=== PATIENT | female | born 1950 | race Caucasian/White ===

== ENCOUNTER → 2020-01-02 10:46 | Outpatient (BNVA) | payer MEDICARE, SELFPAY | PROVIDERS: PCP Internal Medicine; Visit Provider Orthopaedic Surgery | DX: Z76.89 Persons encountering health services in other specified circumstances (principal) ==

== ENCOUNTER → 2020-01-29 09:32 | Outpatient (REF) | payer MEDICARE, OTHER, SELFPAY ==
--- NOTE | 2020-01-29 09:30 | CA_ITS ---
Transthoracic Echocardiogram Patient (Last, First, Middle): Yvonne Bledsoe, Gender: Female Date of : 1950 Age: 69 Procedure Date: 01/29/2020 Procedure Type: Transthoracic Echocardiogram Location: OP Height: 157.48 cm Weight: 97.07 kg BSA: 1.97 m2 Heart Rate: bpm BP: 122 / 80 mmHg Senior Pastor: Referring MD: Zhanna Solomon MD Training And Development Director: Ryan Garnett MD Symptoms: ABNORMAL EKG , PRE OP Study Quality: Fair ECG Rhythm: Sinus Conclusions: - 1. Normal LV systolic function with mild LVH with grade 1 diastolic dysfunction 2. Normal cardiac valvular Doppler 3. Normal RV systolic pressure 4. No pericardial effusion Findings Left Ventricle Normal left ventricular size and systolic function. There is mildly increased left ventricular wall thickness. The visually estimated ejection fraction is between 60-65%. Regional wall motion abnormalities can not be excluded due to suboptimal endocardial definition. Spectral Doppler is indicative of an impaired relaxation filling pattern. E/E prime ratio is <8, consistent with normal filling pressures. Evidence suggests grade I (mild) diastolic dysfunction. Right Ventricle Normal right ventricular cavity size and systolic function. Atria The left atrium is normal in size. Interatrial shunt cannot be excluded. The right atrium was not well visualized. Aortic Valve The aortic valve was not well visualized. There is no aortic valve stenosis. There is no aortic valve regurgitation. Mitral Valve Likely normal mitral valve structure and function. There is trace mitral valve regurgitation. There is no mitral valve stenosis. Pulmonic Valve The pulmonic valve was not well visualized. Tricuspid Valve Likely normal tricuspid valve structure and function. There is trace tricuspid valve regurgitation. The right ventricular systolic pressure is normal. The right ventricular systolic pressure is 23 mmHg. Normal right atrial pressure. There is no evidence of pulmonary hypertension. Great Vessels All visible segments of the aorta are normal in size. The pulmonary artery was not well visualized. Venous The inferior vena cava is normal in size and collapses greater than 50% with inspiration. Pericardium/Pleural There is no evidence of pericardial effusion. Prior Study Comparison No significant change compared to prior study dated: 07/12/2016. Measurements 2D Linear Measurements IVSd: 1.26 0.6-0.9/0.6-1.0 cm LVIDd: 3.74 3.9-5.3/4.2-5.9 cm LVIDd Index: 1.90 2.4-3.2/2.2-3.1 cm/m2 LVIDs: 2.42 2.0-3.6 cm LVPWd: 1.22 0.7-1.1 cm Ao Root: 3.10 2.1-3.5 cm LA Diam: 3.60 2.7-3.8/3.0-4.0 cm LAIDs Index: 1.83 1.5-2.3 cm/m2 LV Mass: 195.86 67-162/88-224 g LV Mass Index: 99.42 43-95/49-115 g/m2 LVOT Diam: 2.00 3.0+(-)1.3 cm Mitral Valve MV Pk E: 0.91 MV PK A: 1.06 MV Decel Time: 162.00 E/A: 0.90 E'Lateral: 8.32 E'Medial: 6.38 E/E' Med: 14.30 E/E' Lat: 11.00 PHT: 47.00 MVA PHT: 4.68 Decel [place]: 5.63 Aortic Valve AoV Pk Matteo: 1.58 AoV Mn Matteo: 1.04 AoV VTI: 0.37 AoV Pk Grad: 10.00 Aov Mn Grad: 5.00 MORAIMA Cont.VTI: 2.22 LVOT LVOT Pk Matteo: 0.96 LVOT Mn Matteo: 0.64 LVOT VTI: 0.27 LVOT Pk Grad: 4.00 LVOT Mn Grad: 2.00 LVOT Diam: 2.00 LVOT Area: 3.14 Diastolic Function MV Pk E: 0.91 MV Pk A: 1.06 E/A: 0.90 E'Medial: 6.38 E/E' Med: 14.30 E' Laterial: 8.32 E/E' Lat: 11.00 Tricuspid Valve TR Pk Matteo: 2.23 TR Pk Grad: 20.00 RA Press: 3.00 RVSP: 23.00 Great Vessels Aorta Ao Root-2D: 3.10 2.0-3.7 cm Ao Asc: 2.90 2.1-3.4 cm Pulmonary Valve PV Pk Matteo: 1.34 Peak PV Grad: 7.00 Updated in Other Vendor System with Status of Final Ryan Garnett MD electronically signed on 01/29/2020 1:17:43 PM with status of Final
== END ==
LOC: HO.CARD 09:32
PROVIDERS: PCP Internal Medicine; Visit Provider Internal Medicine
DX: Z01.810 Encounter for preprocedural cardiovascular examination (principal); Z01.812 Encounter for preprocedural laboratory examination; R94.31 Abnormal electrocardiogram [ECG] [EKG]; M17.31 Unilateral post-traumatic osteoarthritis, right knee
CPT/HCPCS: 93306; 99212

== ENCOUNTER 2020-02-04 06:23 | Inpatient (IN) | payer MEDICARE, OTHER, SELFPAY ==
--- NOTE | 2020-01-21 | ECG_ITS ---
Test Reason : PREOP Blood Pressure : / mmHG Vent. Rate : 084 BPM Atrial Rate : 084 BPM P-R Int : 144 ms QRS Dur : 084 ms QT Int : 388 ms P-R-T Axes : 074 070 037 degrees QTc Int : 458 ms Normal sinus rhythm Nonspecific ST abnormality Abnormal ECG When compared with ECG of 23-JUN-2016 09:34, Heart rate has decreased ST more depressed Inferior leads Lateral leads Referred By: Ino Lozoya Electronically Signed By:EDNA MOHAMUD MD
[2020-01-21 08:55] VITALS: BP 119/70; PULSE 94; RESP 20; BMI 36.7
[2020-01-21 10:36] LABS: MANUAL DIFF FLAG NO
[2020-01-21 10:48] LABS: Basophils Percent Auto 0.5 % (0-2); Eosinophils Absolute Auto 0.1 X10*3/uL (0.0-0.4); Eosinophils Percent Auto 1.8 % (0-4); Hematocrit 37.4 % (37-47); Hemoglobin 11.5 g/dl (12.0-16.0); Imm Gran Abs Auto 0.01 X10*3/uL (0.00-0.03); Imm Gran Pct Auto 0.2 % (0.0-0.4); Lymphocytes Absolute Auto 1.8 X10*3/uL (1.2-4.9); Lymphocytes Percent Auto 29.3 % (20-40); Mean Corpuscular HGB Conc 30.7 g/dl (31.0-35.0); Mean Corpuscular Hemoglobin 28.4 pg (27.0-33.0); Mean Corpuscular Volume 92.3 fL (80-98); Mean Platelet Volume 11.4 fL (9.4-12.3); Monocytes Absolute Auto 0.5 X10*3/uL (0.1-1.2); Monocytes Percent Auto 7.7 % (2-11); Neutrophils Absolute Auto 3.8 X10*3/uL (2.0-8.3); Neutrophils Percent Auto 60.5 % (45-73); Platelet Count 131 X10*3/uL (160-400); Red Blood Count 4.05 X10*6/uL (4.20-5.50); Red Cell Distribution Width 16.3 % (11.0-16.0); White Blood Count 6.2 X10*3/uL (4.8-10.8)
[2020-01-21 11:03] LABS: Estimated Average Glucose 157 mg/dL; Hemoglobin A1c % 7.1 %
[2020-01-21 11:11] LABS: Anion Gap 12 (12-20); Blood Urea Nitrogen 23 mg/dL (9-16); Calcium 9.5 mg/dL (8.4-10.2); Carbon Dioxide 29 mmol/L (22-29); Chloride 105 mmol/L (96-108); Creatinine Clr Calc Pharmacy 57.2; Estimated Glomerular Filt Rate 53; Glucose Random 151 mg/dL (60-115); Potassium 4.4 mmol/l (3.3-5.1); Sodium 142 mmol/L (135-145)
[2020-01-21 12:43] LABS: MRSA Nasal PCR NEGATIVE (Negative); SA Nasal PCR POSITIVE (Negative)
--- NOTE | 2020-02-03 10:58 | P.CONAN_ITS ---
Documented by User: Vikyher Haqney 02/03/20 11:01 HPI - Anesthesia Eval Consult details Narrative: 69yo F for Right TKA PCP cleared [facility] Past Medical History Medical History Anxiety Arrhythmia Arthritis COPD (chronic obstructive pulmonary disease) Depression Diabetes insipidus, neurohypophyseal History of diverticulosis History of renal stone Hypertension IBS (irritable bowel syndrome) CHASE on CPAP PONV (postoperative nausea and vomiting) Surgical History Surgical History History of cystoscopy History of removal of retained hardware Hx of colonoscopy Hx of right knee surgery Status post laser lithotripsy of ureteral calculus Social History Social History Are you a primary day care attendant to a significant other at home: No Do you presently have visiting nurse or other home services: No Alcohol intake: never Smoking Status: Former smoker Smoking Quit Date: 2016 Use of substances other than those prescribed or required for medical reasons: No Have you been hit, kicked, punched, or otherwise hurt by someone within the past year? If so, by whom?: No Protestant Healthcare Practices: amish Advance Directives: No Advance Directives Information Provided: No Advance Directives on File: No Recently lost weight without trying: No Current occupational status: retired [employer] Allergies Allergy/AdvReac Type Severity Reaction Status Date / Time hydrocodone [From VICODIN] AdvReac Severe NAUSEA AND Verified 02/04/20 06:32 VOMIITING Home Medications Medication Instructions Recorded Confirmed Type acetaminophen 500 mg tablet 500 mg PO Q6H 01/02/20 01/20/20 History alprazolam 0.25 mg tablet 0.25 mg PO DAILY PRN 01/02/20 01/02/20 History brimonidine 0.1 % eye drops 1 drp OPHTHALMIC (EYE) BID ml 01/02/20 02/04/20 History citalopram 40 mg tablet 40 mg PO DAILY 01/02/20 01/20/20 History cyclobenzaprine 5 mg tablet 5 mg PO BID 01/02/20 01/20/20 History fluticasone 250 mcg-salmeterol 50 2 inh INHALATION DAILY 01/02/20 01/20/20 History mcg/dose blistr powdr for inhalation glipizide 10 mg tablet 10 mg PO BID 01/02/20 01/20/20 History latanoprost 0.005 % eye drops 1 drp OPHTHALMIC (EYE) DAILY ml 01/02/20 01/20/20 History lisinopril 20 mg tablet 20 mg PO DAILY 01/02/20 01/21/20 History meloxicam 15 mg tablet 15 mg PO DAILY 01/02/20 01/20/20 History mirtazapine 30 mg tablet 30 mg PO BEDTIME 01/02/20 01/20/20 History oxygen-air delivery systems #1 01/02/20 01/02/20 History pioglitazone 30 mg tablet 30 mg PO DAILY 01/02/20 01/20/20 History rosuvastatin 5 mg tablet 5 mg PO DAILY 01/02/20 01/20/20 History albuterol sulfate [ProAir HFA] 2 puff INHALATION 6XD PRN 01/21/20 01/21/20 History alendronate 1 tab PO QWEEK 01/21/20 01/21/20 History aspirin 81 mg PO DAILY 01/21/20 01/21/20 History multivitamin [One A Day] 1 tab PO DAILY 01/21/20 01/21/20 History umeclidinium [Incruse Ellipta] 1 inh INHALATION DAILY 01/21/20 01/21/20 History Exam Exam Date and Time: February 03, 2020 1058 Height,Weight and Vital Signs: Height 5 ft 4 in Weight 97.069 kg Last Vital Signs Pulse 94 01/21/20 08:55 Resp 20 01/21/20 08:55 BP 119/70 01/21/20 08:55 Pertinent Lab Results Pertinent Lab Results: Laboratory Tests 01/21/20 01/21/20 01/21/20 00:00 10:25 10:25 WBC 6.2 RBC 4.05 L Hgb 11.5 L Hct 37.4 MCV 92.3 MCH 28.4 MCHC 30.7 L RDW 16.3 H Plt Count 131 L MPV 11.4 Immature Gran % (Auto) 0.2 Neut % (Auto) 60.5 Lymph % (Auto) 29.3 [place] % (Auto) 7.7 Eos % (Auto) 1.8 Baso % (Auto) 0.5 Lymph # (Auto) 1.8 [place] # (Auto) 0.5 Eos # (Auto) 0.1 Baso # (Auto) 0.0 Abs Immat Gran (auto) 0.01 Absolute Neuts (auto) 3.8 Absolute Nucleated RBC 0.000 Nucleated RBC % (auto) 0.0 Sodium 142 Potassium 4.4 Chloride 105 Carbon Dioxide 29 Anion Gap 12 BUN 23 H Creatinine 1.02 Estim Creat Clear Calc 57.2 Estimated GFR 53 Random Glucose 151 H Estimat Average Glucose Hemoglobin A1c % Calcium 9.5 Nasal Screen MRSA (PCR) NEGATIVE Nasal S. aureus Screen POSITIVE A Nasal MRSA/S.aureus Interp SEE NOTE Blood Type Antibody Screen 01/21/20 01/29/20 10:25 13:50 WBC RBC Hgb Hct MCV MCH MCHC RDW Plt Count MPV Immature Gran % (Auto) Neut % (Auto) Lymph % (Auto) [place] % (Auto) Eos % (Auto) Baso % (Auto) Lymph # (Auto) [place] # (Auto) Eos # (Auto) Baso # (Auto) Abs Immat Gran (auto) Absolute Neuts (auto) Absolute Nucleated RBC Nucleated RBC % (auto) Sodium Potassium Chloride Carbon Dioxide Anion Gap BUN Creatinine Estim Creat Clear Calc Estimated GFR Random Glucose Estimat Average Glucose 157 Hemoglobin A1c % 7.1 Calcium Nasal Screen MRSA (PCR) Nasal S. aureus Screen Nasal MRSA/S.aureus Interp Blood Type A Positive Antibody Screen NEGATIVE Narrative Narrative: EKG Normal sinus rhythm, Nonspecific ST abnormality ECHO 01/29/20 1. Normal LV systolic function with mild LVH with grade 1 diastolic dysfunction 2. Normal cardiac valvular Doppler 3. Normal RV systolic pressure 4. No pericardial effusion Assessment and Plan Assessment Anesthesia Assessment: Chart Reviewed (Pt seen in PAT by Dr Chamberlain, ECHO requested. ) Documented by User: Juan Alberto Jorge MD 02/04/20 08:13 [facility] Past Medical History Medical History Anxiety Arrhythmia Arthritis COPD (chronic obstructive pulmonary disease) Depression Diabetes insipidus, neurohypophyseal History of diverticulosis History of renal stone Hypertension IBS (irritable bowel syndrome) CHASE on CPAP PONV (postoperative nausea and vomiting) Surgical History Surgical History History of cystoscopy History of removal of retained hardware Hx of colonoscopy Hx of right knee surgery Status post laser lithotripsy of ureteral calculus Social History Social History Are you a primary day care attendant to a significant other at home: No Do you presently have visiting nurse or other home services: No Alcohol intake: never Smoking Status: Former smoker Smoking Quit Date: 2016 Use of substances other than those prescribed or required for medical reasons: No Have you been hit, kicked, punched, or otherwise hurt by someone within the past year? If so, by whom?: No Protestant Healthcare Practices: amish Advance Directives: No Advance Directives Information Provided: No Advance Directives on File: No Recently lost weight without trying: No Current occupational status: retired [employer] Allergies Allergy/AdvReac Type Severity Reaction Status Date / Time hydrocodone [From VICODIN] AdvReac Severe NAUSEA AND Verified 02/04/20 06:32 VOMIITING Home Medications Medication Instructions Recorded Confirmed Type acetaminophen 500 mg tablet 500 mg PO Q6H 01/02/20 01/20/20 History alprazolam 0.25 mg tablet 0.25 mg PO DAILY PRN 01/02/20 01/02/20 History brimonidine 0.1 % eye drops 1 drp OPHTHALMIC (EYE) BID ml 01/02/20 02/04/20 History citalopram 40 mg tablet 40 mg PO DAILY 01/02/20 01/20/20 History cyclobenzaprine 5 mg tablet 5 mg PO BID 01/02/20 01/20/20 History fluticasone 250 mcg-salmeterol 50 2 inh INHALATION DAILY 01/02/20 01/20/20 History mcg/dose blistr powdr for inhalation glipizide 10 mg tablet 10 mg PO BID 01/02/20 01/20/20 History latanoprost 0.005 % eye drops 1 drp OPHTHALMIC (EYE) DAILY ml 01/02/20 01/20/20 History lisinopril 20 mg tablet 20 mg PO DAILY 01/02/20 01/21/20 History meloxicam 15 mg tablet 15 mg PO DAILY 01/02/20 01/20/20 History mirtazapine 30 mg tablet 30 mg PO BEDTIME 01/02/20 01/20/20 History oxygen-air delivery systems #1 01/02/20 01/02/20 History pioglitazone 30 mg tablet 30 mg PO DAILY 01/02/20 01/20/20 History rosuvastatin 5 mg tablet 5 mg PO DAILY 01/02/20 01/20/20 History albuterol sulfate [ProAir HFA] 2 puff INHALATION 6XD PRN 01/21/20 01/21/20 History alendronate 1 tab PO QWEEK 01/21/20 01/21/20 History aspirin 81 mg PO DAILY 01/21/20 01/21/20 History multivitamin [One A Day] 1 tab PO DAILY 01/21/20 01/21/20 History umeclidinium [Incruse Ellipta] 1 inh INHALATION DAILY 01/21/20 01/21/20 History Exam Airway Mallampati Class: III TM Dist: >3cm Neck ROM: Full Loose/Missing/Broken Teeth: No Heart: rrr Lungs: nl Other: ao Assessment and Plan Assessment Anesthesia Assessment: Anesthesia Plan Discussed, PAT Visit and Chart Reviewed Final Anesthetic Review NPO: Yes ASA Class: III Final Preanesthetic Review: No Changes in Pt Med Stat, Meds/Allgs Chart Reviewed, Consent Obtained/Reviewed and Anes Risks/Benef Reviewed Patient Risk: Intermediate Procedure Risk: Intermediate Anesthetic Plan Anesthetic Plan: MAC:, Spinal and Regional Block Disposition: Standard PACU
[2020-02-04] VITALS (14 sets, daily range): BP systolic 106–167; BP diastolic 60–81; PULSE 77–97; RESP 14–20; TEMP 35.7–36.6; O2SAT 95–100
[2020-02-04 06:45] LABS: COVID-19 Test Negative (Negative)
[2020-02-04] MEDS: ceFAZolin Sodium/Dextrose,Iso 2 GM/50 ML PIGGYBACK IV ×2 (06:59→14:30)
[2020-02-04] MEDS: Gabapentin 600 MG TABLET PO (07:01)
--- NOTE | 2020-02-04 07:04 | PC.NURSE ---
patient has a small cut on her left knee. took a picture and sent to md adames. nonoperative side.
[2020-02-04] MEDS: Lactated Ringers 1,000 ML 100 ML IVCONT (07:15)
[2020-02-04 07:33] LABS: Glucose, Whole Blood 179 mg/dL (60-115)
[2020-02-04] MEDS: Scopolamine 1.5 MG PATCH.TD.3 TRANSDERMA (08:46)
--- NOTE | 2020-02-04 10:16 | PM.OP ---
Brief Operative Note Date of Service: 02/04/20 Pre-op diagnosis: post traumatic osteoarthritis right knee Post-op diagnosis: same Procedure: right TKA Implants: tatiana triathalon 05/06/TS/35a Surgeon: Guzman Melo MD Anesthesia: regional and spinal Historical Guide: Ino Lozoya Estimated blood loss (mL): 20 Tourniquet time (min): 99 IV fluids (mL): 1,200 Pathology: other (bone, right knee) Condition: stable Disposition: PACU
--- NOTE | 2020-02-04 10:50 | XR_ITS ---
EXAMINATION: XR KNEE, RIGHT CLINICAL INFORMATION: Status post total knee arthroplasty, right COMPARISON: Standing AP knees 05/01/2019, right knee 05/03/2019, right knee 08/13/2019. TECHNIQUE: AP and crosstable lateral views of the right knee are obtained. FINDINGS: Patient is status post right total knee arthroplasty with hinged prosthesis. Old hardware right femur noted on prior imaging has been removed. There is short compression plate and screws proximal medial tibia again noted. There is no acute fracture or destructive process. Subcutaneous emphysema and overlying skin candace seen as expected. XR/XR knee RT 2V IMPRESSION: Status post right knee arthroplasty. Hardware intact. No acute fracture or destructive process.
[2020-02-04] MEDS: Acetaminophen 325 MG TABLET 650 MG PO (11:03)
[2020-02-04] MEDS: oxyCODONE HCl Immed Release 5 MG TABLET PO (11:04)
[2020-02-04] MEDS: Ketorolac Tromethamine 15 MG/ML VIAL IVPUSH (11:04)
--- NOTE | 2020-02-04 12:29 | OP_ITS ---
SURGEON: Guzman Melo MD INDICATIONS: This is a 69-year-old woman who sustained both the tibial plateau and a distal femur fracture over the past several years. She underwent hardware removal and was scheduled for knee replacement. PREOPERATIVE DIAGNOSIS: Right knee posttraumatic osteoarthritis. POSTOPERATIVE DIAGNOSIS: Right knee posttraumatic osteoarthritis. PROCEDURE PERFORMED: Right total knee arthroplasty. ESTIMATED BLOOD LOSS: 20 mL. COMPLICATIONS: None. ANESTHESIA: Spinal and regional. ASSISTANTS: SPECIMENS: FLUIDS: 1200. HOTHOUSE WORKER: NADIYA Mack. GRAFT OR IMPLANTS: Hillary Triathlon, 3 femur with universal 3 base plate and a 50 mm stem extension with 19 PS insert and 35A patella. PROCEDURE IN DETAIL: The patient was brought to the operating room, placed supine on the operative table and prepped and draped in standard sterile fashion. Time-out was called to identify proper site, proper procedure, proper surgeon. IV antibiotics per weight were administered. I began by exsanguinating the limb and insufflating tourniquet to 300 mmHg. I then made a midline incision more medial than typical over her previous incision. Dissection was taken through scar tissue to the retinaculum and a medial parapatellar arthrotomy was performed. She had a posttraumatic deformity of the tibia with a very prominent tibial tubercle and the medial anterior tibial plateau was diminutive. I dissected to the level of the tubercle and was able to translate the patella laterally, flexed up the knee about 50 degrees. Of note, she had a range of motion was not greater than 90 degrees of flexion. She had a hyperextension of -5 degrees. I was able to identify [place]'s line as my guide for intramedullary femoral guide, and I made my distal femur cut in 5 degrees of valgus. I then sized a size 3 femur, made my anterior posterior and chamfer cuts, making sure not to notch and protecting the soft tissues at all times. I made a box cut removing the PCL. At this time, I turned to the tibia, where I made my tibial cut in line with the tibial crest, taking 2 mm off the low side medially. This resulted in a sizable lateral cut. I used an extension block to confirm the extent of resection and was happy with the extension. There was approximately 19 mm insert at this point. I sized a size 3 tibia, aligning it slightly posterior, given the asymmetry of the posttraumatic deformity of the tibia. This was provisionally placed with a femur after removing all the loose tissue and Hydrocet from the tibial plateau ORIF. I took the knee through range of motion with provisional implants and I was happy with the range. I flexed her to approximately to 120 degrees and I had full extension. There was some minimal laxity in valgus stress that could not be compensated for with a medial release. I selected a TS insert counteract this. Once I was happy with the trial, I resurfaced the undersurface of the patella and again took the knee through range of motion. I was happy with the tracking. Tthe tibial canal was prepared. I was able to sink the reamer without encountering the screws. I irrigated copiously and then using standard fashion cement standard technique, cemented in the tibia and femur while applying axial compression. I placed a 50 mm tibial stem. The patella was cemented in. Once the cement was dry, all excess cement was removed and I trialed a 16 and 19 and I was happiest with the 19. A 19 TS insert was placed and a 3-minute iodine soak was performed with local TXA. I was happy with the range tracking and stability. Therefore, the retinaculum was closed with Monocryl and the subcuticular sutue with candace on the skin. The patient was placed in sterile dressing, brought to recovery room in stable condition. There were no known complications. MD KIMBERLY Sanchez/MANDY / [id number] TARAS
[2020-02-04] MEDS: ondansetron HCL 4 MG/2 ML VIAL IVPUSH (13:49)
[2020-02-04] MEDS: HYDROmorphone HCl 0.5 MG/0.5 ML SYRINGE 0.25 MG IVPUSH ×2 (14:29→19:14)
[2020-02-04] MEDS: Sodium Chloride 0.45 % 1,000 ML 80 ML IVCONT (14:34)
--- NOTE | 2020-02-04 14:50 | PM.IMCN ---
History of Present Illness Data of Consult Service Date: 02/04/20 Requesting physician: Guzman Melo Primary Care Provider: Zhanna Solomon MD HPI Reason for consult: Medical Consult 69/ with diabetes, HTN, CHASE on CPAP, anxiety, depression, neuropathy here with elective Right TKR due to post traumatic OA. Surgery done earlier today, no issue at moment. Review of Systems Review of Systems: Gen: no fever Resp: no sob, no cough CV: no chest, no CATES, no leg edema GI: No n/v, no abd pain Neuro: No confusion Musk/skl: pain in the right PMFSH Medical History (Updated 02/04/20 @ 15:07 by Joaquín Gonzalez MD) Anxiety Arrhythmia Arthritis COPD (chronic obstructive pulmonary disease) Depression Diabetes insipidus, neurohypophyseal History of diverticulosis History of renal stone Hypertension IBS (irritable bowel syndrome) CHASE on CPAP PONV (postoperative nausea and vomiting) Functional capacity: independent ambulation Surgical History History of cystoscopy History of removal of retained hardware Hx of colonoscopy Hx of right knee surgery Status post laser lithotripsy of ureteral calculus Social History Are you a primary healthcare interpreter to a significant other at home: No Do you presently have visiting nurse or other home services: No Alcohol intake: never Smoking Status: Former smoker Smoking Quit Date: 2016 Use of substances other than those prescribed or required for medical reasons: No Have you been hit, kicked, punched, or otherwise hurt by someone within the past year? If so, by whom?: No Gnosticism Healthcare Practices: mormon Advance Directives: No Advance Directives Information Provided: No Advance Directives on File: No Do you have thoughts of harming others: None Do you have a plan to hurt others: No Plan Recently lost weight without trying: No Current occupational status: retired Meds Allergies Allergy/AdvReac Type Severity Reaction Status Date / Time hydrocodone [From VICODIN] AdvReac Severe NAUSEA AND Verified 02/04/20 06:32 VOMIITING Home Medications Medication Instructions Recorded Confirmed Type acetaminophen 500 mg tablet 500 mg PO Q6H 01/02/20 01/20/20 History alprazolam 0.25 mg tablet 0.25 mg PO DAILY PRN 01/02/20 01/02/20 History brimonidine 0.1 % eye drops 1 drp OPHTHALMIC (EYE) BID ml 01/02/20 02/04/20 History citalopram 40 mg tablet 40 mg PO DAILY 01/02/20 01/20/20 History cyclobenzaprine 5 mg tablet 5 mg PO BID 01/02/20 01/20/20 History fluticasone 250 mcg-salmeterol 50 2 inh INHALATION DAILY 01/02/20 01/20/20 History mcg/dose blistr powdr for inhalation glipizide 10 mg tablet 10 mg PO BID 01/02/20 01/20/20 History latanoprost 0.005 % eye drops 1 drp OPHTHALMIC (EYE) DAILY ml 01/02/20 01/20/20 History lisinopril 20 mg tablet 20 mg PO DAILY 01/02/20 01/21/20 History meloxicam 15 mg tablet 15 mg PO DAILY 01/02/20 01/20/20 History mirtazapine 30 mg tablet 30 mg PO BEDTIME 01/02/20 01/20/20 History oxygen-air delivery systems #1 01/02/20 01/02/20 History pioglitazone 30 mg tablet 30 mg PO DAILY 01/02/20 01/20/20 History rosuvastatin 5 mg tablet 5 mg PO DAILY 01/02/20 01/20/20 History albuterol sulfate [ProAir HFA] 2 puff INHALATION 6XD PRN 01/21/20 01/21/20 History alendronate 1 tab PO QWEEK 01/21/20 01/21/20 History aspirin 81 mg PO DAILY 01/21/20 01/21/20 History multivitamin [One A Day] 1 tab PO DAILY 01/21/20 01/21/20 History umeclidinium [Incruse Ellipta] 1 inh INHALATION DAILY 01/21/20 01/21/20 History Physical Exam Vital Signs and Narrative: Vital Signs: Last Vital Signs Temp 96.8 F 02/04/20 12:48 Pulse 80 02/04/20 12:48 Resp 18 02/04/20 14:29 BP 165/76 H 02/04/20 12:48 Pulse Ox 97 02/04/20 12:48 Body Mass Index 36.7 General: AO X 3, no acute distress Resp: CTA bilateral CVS: S1,S2,RRR GI: +BS, NT, no distention Skin: No rash, wound d/c/i Neuro: motor grossly intact Psych: appropriate affect Results Labs CBC and Chem 7: 02/05/20 06:09 02/05/20 06:09 Labs: Laboratory Results - last 24 hr 02/04/20 02/04/20 06:17 06:25 POC Glucose 179 H COVID-19 (JARED) Negative COVID-19 Clin Com See Note Imaging Radiologist's Impressions: Impressions Knee X-Ray 02/04/20 10:50 IMPRESSION: Status post right knee arthroplasty. Hardware intact. No acute fracture or destructive process. Assessment and Plan (1) Diabetes insipidus, neurohypophyseal: Status: Acute (2) Post-traumatic osteoarthritis of right knee: Status: Acute (3) Depression: Status: Acute (4) Hypertension: Status: Acute (5) CHASE on CPAP: Status: Acute (6) Anxiety: Status: Acute 69/F with DM, HTN, Depression, CHASE here with right knee OA s/p Right TKR 1. Dabetes--Hold oral agents (Acotos and Glipzide) until tomorrrow. Add SSI, and check sugars 2. HTN --continue Lisinopril 3. Depression--Remron, Celex 4. Anxiety--Xanax PRN 5. COPD, stable no exacerbtion--Albuterol PRN 6.
[2020-02-04 16:33] LABS: Glucose, Whole Blood 158 mg/dL (60-115)
[2020-02-04] MEDS: Insulin Lispro 100 UNIT/ML 3 ML VIAL SUBCUT ×2 (16:44→20:36)
[2020-02-04] MEDS: 0.9 % Sodium Chloride Flush 3 ML SYRINGE IVFLUSH (16:46)
--- NOTE | 2020-02-04 18:45 | P.EN_ITS ---
Event Note Date of Service: 02/04/20 Event Note: Ms Bledsoe underwent right TKA today. Post operative radiographs re vealed a periprosthetic fracture of the tibia. Intra-operatively she had excellent ROM and stability but for the longevity of the knee prosthesis I recommend revision. I discussed this finding with her and her daughter and recommend a return to the OR for replacement of the tibial component with a long tibial stemmed componenet that spans the cortical defect. I explained this to the patient and her daughter. I also described the risks, benefits and alternatives. Her questions were answered. She will be NPO after midnight.
[2020-02-04 20:14] LABS: Glucose, Whole Blood 262 mg/dL (60-115)
[2020-02-04] MEDS: Brimonidine Tartrate 0.2% Oph 5 ML BOTTLE 1 DROP EYE-BOTH (20:20)
[2020-02-04] MEDS: Latanoprost 0.005 % Ophth Sol 2.5 ML DROPS 1 DROP EYE-BOTH (20:20)
[2020-02-04] MEDS: Mirtazapine 30 MG TABLET PO (20:22)
[2020-02-04] MEDS: Cyclobenzaprine HCl 5 MG TABLET PO (20:22)
[2020-02-04] MEDS: Celecoxib 200 MG CAPSULE PO (20:22)
[2020-02-04] MEDS: oxyCODONE HCl Immed Release 5 MG TABLET 10 MG PO (20:27)
[2020-02-05] VITALS (31 sets, daily range): BP systolic 80–147; BP diastolic 48–77; PULSE 79–120; RESP 13–20; TEMP 36.1–37.3; O2SAT 90–98; BMI 36.7
--- NOTE | 2020-02-05 | XR_ITS ---
EXAMINATION: XR KNEE, RIGHT CLINICAL INFORMATION: Right knee TKA COMPARISON: None TECHNIQUE: Crosstable lateral view of the right knee. FINDINGS: Frontal and oblique view of the knee was performed earlier today. See separate report. Crosstable lateral view of right knee shows status post right knee arthroplasty. Prosthetic components in position. No fracture. Surgical clips at the anterior knee. There is air in the soft tissue from the surgery. XR/XR knee RT 2V IMPRESSION: Status post right knee arthroplasty.
[2020-02-05] MEDS: HYDROmorphone HCl 0.5 MG/0.5 ML SYRINGE 0.25 MG IVPUSH ×3 (00:27→23:56)
[2020-02-05] MEDS: oxyCODONE HCl Immed Release 5 MG TABLET 10 MG PO ×3 (02:44→22:22)
[2020-02-05] MEDS: Sodium Chloride 0.45 % 1,000 ML 80 ML IVCONT ×2 (02:48→16:17)
[2020-02-05] MEDS: ceFAZolin Sodium/Dextrose,Iso 2 GM/50 ML PIGGYBACK IV ×2 (05:44→15:50)
[2020-02-05 06:54] LABS: MANUAL DIFF FLAG NO
[2020-02-05 07:02] LABS: Basophils Percent Auto 0.1 % (0-2); Eosinophils Percent Auto 0.5 % (0-4); Hematocrit 33.4 % (37-47); Hemoglobin 10.2 g/dl (12.0-16.0); Imm Gran Abs Auto 0.02 X10*3/uL (0.00-0.03); Imm Gran Pct Auto 0.2 % (0.0-0.4); Lymphocytes Absolute Auto 1.2 X10*3/uL (1.2-4.9); Lymphocytes Percent Auto 13.8 % (20-40); Mean Corpuscular HGB Conc 30.5 g/dl (31.0-35.0); Mean Corpuscular Hemoglobin 29.1 pg (27.0-33.0); Mean Corpuscular Volume 95.2 fL (80-98); Mean Platelet Volume 12.2 fL (9.4-12.3); Monocytes Percent Auto 11.2 % (2-11); Neutrophils Absolute Auto 6.3 X10*3/uL (2.0-8.3); Neutrophils Percent Auto 74.2 % (45-73); Platelet Count 135 X10*3/uL (160-400); Red Blood Count 3.51 X10*6/uL (4.20-5.50); Red Cell Distribution Width 15.6 % (11.0-16.0); White Blood Count 8.5 X10*3/uL (4.8-10.8)
[2020-02-05 07:13] LABS: Glucose, Whole Blood 196 mg/dL (60-115)
[2020-02-05 07:23] LABS: Anion Gap 15 (12-20); Blood Urea Nitrogen 20 mg/dL (9-16); Calcium 8.9 mg/dL (8.4-10.2); Carbon Dioxide 27 mmol/L (22-29); Chloride 102 mmol/L (96-108); Creatinine Clr Calc Pharmacy 61.4; Estimated Glomerular Filt Rate 58; Glucose Fasting 203 mg/dL (60-99); Potassium 4.7 mmol/l (3.3-5.1); Sodium 139 mmol/L (135-145)
--- NOTE | 2020-02-05 07:40 | MHC.SHP ---
Pre-Procedural Eval Section A The patient is an INPATIENT: Yes Changes since office visit: Yes Patient answered all questions; No Cold of Flu in the past 2 weeks, No New Medical Problems and No Changes in Medication The History & Physical has been completed within 30 days and I have reviewed it.: Yes Section B Chief Complaint: RIGHT KNEE OSTEOARTHRITIS Allergies: Allergies Allergy/AdvReac Type Severity Reaction Status Date / Time hydrocodone [From VICODIN] AdvReac Severe NAUSEA AND Verified 02/04/20 06:32 VOMIITING Plan Patient has been examined and remains a candidate for the planned procedure
--- NOTE | 2020-02-05 09:17 | HO.POSTANES ---
Post Anesthesia Evaluation Post Anesthesia Evaluation Vital Signs: Vital Signs Temp Pulse Resp BP Pulse Ox 02/05/20 07:04 99.2 F 102 H 18 100/51 L 90 L 02/05/20 02:51 97.8 F 93 16 147/58 H 97 02/04/20 21:24 97.8 F 78 18 152/71 H 98 Anesthesia: Nerve Block and General Mental Status: Awake Pain Control: Satisfactory (patient had pain all night. most likely secondary to fracture that ocurred during the procedure) Nausea/Vomiting: Mild (has improved but vomited many times after surgery) Hydration: Adequate Anesthesia-Related Issues: No Anes. Related Issues (no anesthesia related complications but had surgical complication. To return to OR today 02/04 for revision)
--- NOTE | 2020-02-05 10:19 | XR_ITS ---
EXAMINATION: XR KNEE, RIGHT CLINICAL INFORMATION: Status post right knee arthroplasty. COMPARISON: Radiographs right knee 02/04/2020, 05/01/2019, 04/23/2019 TECHNIQUE: Portable AP and portable crosstable lateral views of the right knee are obtained at 1033/1036 hours. FINDINGS: There is now an unhinged knee arthroplasty with long stem tibial component traversing an oblique fracture of the proximal tibia. There is a clamp overlying the proximal tibia. The hardware appears intact. No dislocation. XR/XR knee RT 2V IMPRESSION: Status post unhinged knee arthroplasty with longstem tibial component traversing an oblique fracture proximal tibia.
--- NOTE | 2020-02-05 11:31 | XR_ITS ---
EXAMINATION: XR KNEE, RIGHT CLINICAL INFORMATION: Status post right total knee arthroplasty COMPARISON: Earlier on same day and February 04, 2020 TECHNIQUE: AP and lateral of the right knee. FINDINGS: Patient status post right total knee arthroplasty with prosthetic components in position. Since previous study a sideplate and screws within the proximal tibia have been removed. A new plate and side screws seen more proximally within the proximal tibia. Skin candace in place. Subcutaneous gas seen from recent surgery. XR/XR knee RT 2V IMPRESSION: Status post right total knee arthroplasty with revision. Prosthetic components appear in position.
--- NOTE | 2020-02-05 12:04 | MHC.CM.PN ---
NURSE FROZEN FOODS MANAGER NOTE ELECTRONIC MEDICAL RECORD REVIEWED ALONG WITH CASE DISCUSSED WITH STAFF NURSE MET WITH PATIENT AND EXPLAINED THE ROLE OF THE NURSE FROZEN FOODS MANAGER , PATIENT REPORTS THAT SHE LIVES ALONE IS INDEPENDENT IN HER ADLS AND MOBILITY AT HER OWN PACE AND THAT HER SISTER WILL COME AND STAY WITH HER WHEN SHE IS DISCHARGED HOME . SHE HAS A CPAP MACHINE FROM [employer] ,SHE IS FOLLOWED BY A PULMONARY AT [facility] FOR HER COPD , SHE HAS ANXIETY BUT SEES NO ONE , REPORTS THAT SHE CURRENTLY DOES NOT HAVE ANY VNA SERVCIES .PRIMARY Care doctor prescribes any medications that she might need. REVIEWED WITH PATIENT THE VNA AGENCIES AND SHE REQUESTED TO HAVE BACK AGAIN THE [facility] FOR HOME PHYSICAL THERAPY DISCHARGE PLAN HOME- WITH THE [facility] FOR HOME PHYSICAL THERAPY TRANSPORTATION FAMILY PCP PATIENT TO CALL FOR FOLLOW UP POST HOSPITAL DISCHARGE, ORTHOPEDIC SURGICAL FOLLOW UP-PER DISCHARGE [employer] medicare imm Initialized on 02/04/20 16:00 - END OF NOTE
[2020-02-05 12:24] LABS: Glucose, Whole Blood 209 mg/dL (60-115)
--- NOTE | 2020-02-05 12:36 | P.PNIM_ITS ---
Subjective Subjective Date of Service: 02/05/20 Interval History: seen in f/u for consult s/p TKR, gone back to surgery Physical Exam Vital Signs: Vital Signs: Last Vital Signs Temp 98.6 F 02/05/20 12:15 Pulse 111 H 02/05/20 12:20 Resp 18 02/05/20 12:20 BP 111/71 02/05/20 12:20 Pulse Ox 93 02/05/20 12:20 Body Mass Index 36.7 General: AO X 3, no acute distress Resp: normal resp effort CVS: S1,S2,RRR GI: +BS, NT, no distention Skin: No rash, wound d/c/i Neuro: motor grossly intact Psych: appropriate affect Objective Data Current Medications Generic Name Dose Route Start Last Admin Trade Name Freq PRN Reason Stop Dose Admin Acetaminophen 650 mg 02/04/20 12:43 Acetaminophen 325 Mg Tablet PO Q6H PRN Pain, Mild (Pain Scale 1-3) Albuterol Sulfate 2 puff 02/04/20 12:43 Albuterol Sulfate 90 Mcg 8 Gm Inhaler INHALE 6XD PRN Wheezing Brimonidine Tartrate 1 drop 02/04/20 21:00 02/04/20 20:20 Brimonidine Tartrate 0.2% Oph 5 Ml Bottle EYE-BOTH 1 drop BID PERRY Administration Celecoxib 200 mg 02/04/20 21:00 02/04/20 20:22 Celecoxib 200 Mg Capsule PO 200 mg BID PERRY Administration Cyclobenzaprine HCl 5 mg 02/04/20 21:00 02/04/20 20:22 Cyclobenzaprine Hcl 5 Mg Tablet PO 5 mg BID PERRY Administration Escitalopram Oxalate 20 mg 02/05/20 09:00 Escitalopram Oxalate 20 Mg Tablet PO DAILY PERRY Fluticasone/Vilanterol 1 puff 02/05/20 08:00 02/05/20 08:43 Fluticasone/Vilanterol 100/25 Blst.W.Dev INHALE Not Given RDAILY PERRY Hydromorphone HCl 0.25 mg 02/04/20 12:43 02/05/20 05:52 Hydromorphone Hcl 0.5 Mg/0.5 Ml Syringe IVPUSH 0.25 mg Q4H PRN Administration Pain, Severe (Pain Scale 7-10) Hydromorphone HCl 0.5 mg 02/05/20 09:54 Hydromorphone Hcl 0.5 Mg/0.5 Ml Syringe IVPUSH Q5M PRN Pain, Severe (Pain Scale 7-10) Sodium Chloride 1,000 mls @ 80 mls/hr 02/04/20 12:43 02/05/20 02:48 IVCONT 80 mls/hr .[id number] PERRY Administration Promethazine HCl 12.5 mg/ 50.5 mls @ 202 mls/hr 02/05/20 09:54 Sodium Chloride IV ONCE PRN Nausea and Vomiting Insulin Human Lispro 0 unit 02/04/20 16:30 02/05/20 08:38 Insulin Lispro 100 Unit/Ml 3 Ml Vial SUBCUT Not Given QIDACHS [facility] Protocol Latanoprost 1 drop 02/04/20 21:00 02/04/20 20:20 Latanoprost 0.005 % Ophth Hali 2.5 Ml Drops EYE-BOTH 1 drop BEDTIME [facility] Administration Lisinopril 20 mg 02/05/20 09:00 Lisinopril 20 Mg Tablet PO DAILY [facility] Protocol Mirtazapine 30 mg 02/04/20 21:00 02/04/20 20:22 Mirtazapine 30 Mg Tablet PO 30 mg BEDTIME [facility] Administration Multivitamins/Vitamin C 1 tab 02/05/20 09:00 Multivitamin Tablet PO DAILY [facility] Naloxone HCl 0.2 mg 02/04/20 12:43 Naloxone Hcl 0.4 Mg/Ml Vial IVPUSH Q2M PRN Excessive sedation or RR < 8 Ondansetron HCl 4 mg 02/04/20 13:49 Ondansetron Hcl 4 Mg/2 Ml Vial IVPUSH Q6H PRN Nausea Ondansetron HCl 4 mg 02/05/20 09:54 Ondansetron Hcl 4 Mg/2 Ml Vial IVPUSH ONCE PRN Nausea and Vomiting Oxycodone HCl 10 mg 02/04/20 12:43 02/05/20 02:44 Oxycodone Hcl Immed Release 5 Mg Tablet PO 10 mg Q4H PRN Administration Pain, Moderate (Pain Scale 4-6 Senna 17.2 mg 02/04/20 12:43 Sennosides 8.6 Mg Tablet PO BEDTIME PRN Constipation Sodium Chloride 3 ml 02/04/20 16:00 02/04/20 20:38 0.9 % Sodium Chloride Flush 3 Ml Syringe IVFLUSH Not Given QSHIFT PERRY Labs CBC & Chem 7: 02/06/20 06:05 02/06/20 06:05 Assessment and Plan (1) Diabetes insipidus, neurohypophyseal: Status: Acute (2) Post-traumatic osteoarthritis of right knee: Status: Acute (3) Depression: Status: Acute (4) Hypertension: Status: Acute (5) CHASE on CPAP: Status: Acute (6) Anxiety: Status: Acute Assessment and Plan: 69/F with DM, HTN, Depression, CHASE here with right knee OA s/p Right TKR 1. Dabetes--Hold oral agents (Acotos and Glipzide) until tomorrrow. Add SSI, and check sugars 2. HTN --continue Lisinopril 3. Depression--Remron, Celex 4. Anxiety--Xanax PRN 5. COPD, stable no exacerbtion--Albuterol PRN 6. s/p TKR, management by ortho late entry note from 02/03
[2020-02-05] MEDS: HYDROmorphone HCl 0.5 MG/0.5 ML SYRINGE IVPUSH (12:38)
[2020-02-05] MEDS: 0.9 % Sodium Chloride Flush 3 ML SYRINGE IVFLUSH (15:54)
[2020-02-05 17:02] LABS: Glucose, Whole Blood 178 mg/dL (60-115)
[2020-02-05] MEDS: Insulin Lispro 100 UNIT/ML 3 ML VIAL SUBCUT ×2 (17:59→21:12)
[2020-02-05] MEDS: Cyclobenzaprine HCl 5 MG TABLET PO (20:46)
[2020-02-05] MEDS: Mirtazapine 30 MG TABLET PO (20:46)
[2020-02-05] MEDS: Celecoxib 200 MG CAPSULE PO (20:46)
[2020-02-05] MEDS: Latanoprost 0.005 % Ophth Sol 2.5 ML DROPS 1 DROP EYE-BOTH (20:46)
[2020-02-05] MEDS: Brimonidine Tartrate 0.2% Oph 5 ML BOTTLE 1 DROP EYE-BOTH (20:47)
[2020-02-05 20:48] LABS: Glucose, Whole Blood 182 mg/dL (60-115)
[2020-02-06] VITALS (8 sets, daily range): BP systolic 82–162; BP diastolic 45–90; PULSE 76–119; RESP 18–20; TEMP 36.1–38.3; O2SAT 92–97
--- NOTE | 2020-02-06 | XR_ITS ---
EXAMINATION: XR CHEST CLINICAL INFORMATION: Evaluate for pulmonary pathology COMPARISON: 06/11/2016 TECHNIQUE: Frontal view of the chest was obtained. FINDINGS: The lungs are well expanded. There is no focal consolidation, edema, or effusion. No pneumothorax. The cardiomediastinal silhouette is within normal limits of size with a calcified aorta. No acute osseous abnormality.. Degenerative changes of both shoulders. XR/XR chest 1V IMPRESSION: No acute pulmonary finding.
[2020-02-06] MEDS: Sodium Chloride 0.45 % 1,000 ML 80 ML IVCONT ×2 (04:36→21:43)
[2020-02-06] MEDS: oxyCODONE HCl Immed Release 5 MG TABLET 10 MG PO ×2 (05:22→11:03)
[2020-02-06 06:23] LABS: MANUAL DIFF FLAG NO
[2020-02-06 06:27] LABS: Basophils Percent Auto 0.2 % (0-2); Eosinophils Percent Auto 0.1 % (0-4); Hematocrit 29.4 % (37-47); Hemoglobin 9.2 g/dl (12.0-16.0); Imm Gran Abs Auto 0.03 X10*3/uL (0.00-0.03); Imm Gran Pct Auto 0.3 % (0.0-0.4); Lymphocytes Absolute Auto 1.2 X10*3/uL (1.2-4.9); Lymphocytes Percent Auto 13.4 % (20-40); Mean Corpuscular HGB Conc 31.3 g/dl (31.0-35.0); Mean Corpuscular Hemoglobin 28.8 pg (27.0-33.0); Mean Corpuscular Volume 91.9 fL (80-98); Mean Platelet Volume 11.5 fL (9.4-12.3); Monocytes Absolute Auto 1.2 X10*3/uL (0.1-1.2); Monocytes Percent Auto 12.9 % (2-11); Neutrophils Absolute Auto 6.5 X10*3/uL (2.0-8.3); Neutrophils Percent Auto 73.1 % (45-73); Platelet Count 108 X10*3/uL (160-400); Red Cell Distribution Width 15.2 % (11.0-16.0); White Blood Count 8.9 X10*3/uL (4.8-10.8)
[2020-02-06 07:12] LABS: Anion Gap 9 (12-20); Blood Urea Nitrogen 10 mg/dL (9-16); Calcium 8.2 mg/dL (8.4-10.2); Carbon Dioxide 30 mmol/L (22-29); Chloride 102 mmol/L (96-108); Creatinine Clr Calc Pharmacy 68.6; Estimated Glomerular Filt Rate > 60; Glucose Fasting 199 mg/dL (60-99); Potassium 4.3 mmol/l (3.3-5.1); Sodium 137 mmol/L (135-145)
[2020-02-06] MEDS: Fluticasone/Vilanterol 100/25 BLST.W.DEV 1 PUFF INHALE (07:27)
[2020-02-06] MEDS: HYDROmorphone HCl 0.5 MG/0.5 ML SYRINGE 0.25 MG IVPUSH (07:55)
[2020-02-06 08:10] LABS: Glucose, Whole Blood 182 mg/dL (60-115)
--- NOTE | 2020-02-06 08:28 | PM.PNORT ---
Subjective Subjective Date of Service: 02/06/20 Principal diagnosis: s/p Revision RT TKA Interval history: POD 1 s/p Revision RT TKA No overnight events, resting in bed, has not bed out of bed yet but comfortable with pain medication, Denies sob, dizziness, chest pain. Physical Exam Vital Signs: Vital Signs: Last Vital Signs Temp 98.9 F 02/06/20 07:00 Pulse 119 H 02/06/20 07:29 Resp 18 02/06/20 07:00 BP 100/82 02/06/20 07:00 Pulse Ox 96 02/06/20 07:00 Body Mass Index 36.7 Const: General: cooperative, healthy appearing and no acute distress Resp: Effort & Inspection: normal respiratory effort and able to speak in complete sentences Cardio: Rate: regular rate Peripheral pulses: Peripheral pulses 2+ throughout GI: Inspection: Yes normal to inspection Palpation (GI): Soft to palpation Skin: General skin exam: no rashes or lesions noted Extrem: Other: Prevena dressing intact, no drainage, mild swelling, calf supple non tender. Progress Note: A&P Assessment and plan (1) Status post revision of total replacement of right knee: Status: Acute Assessment and Plan: Continue pain mgmnt Begin asa for dvt ppx begin PT for Revision RT TKA-WBAt Dispo planning-Pending PT eval, pain mgmnt Fall Risk Details Current Medications: Current Medications Generic Name Dose Route Start Last Admin Trade Name Freq PRN Reason Stop Dose Admin Acetaminophen 650 mg 02/04/20 12:43 Acetaminophen 325 Mg Tablet PO Q6H PRN Pain, Mild (Pain Scale 1-3) Albuterol Sulfate 2 puff 02/04/20 12:43 Albuterol Sulfate 90 Mcg 8 Gm Inhaler INHALE 6XD PRN Wheezing Brimonidine Tartrate 1 drop 02/04/20 21:00 02/05/20 20:47 Brimonidine Tartrate 0.2% Oph 5 Ml Bottle EYE-BOTH 1 drop BID PERRY Administration Celecoxib 200 mg 02/04/20 21:00 02/05/20 20:46 Celecoxib 200 Mg Capsule PO 200 mg BID PERRY Administration Cyclobenzaprine HCl 5 mg 02/04/20 21:00 02/05/20 20:46 Cyclobenzaprine Hcl 5 Mg Tablet PO 5 mg BID PERRY Administration Escitalopram Oxalate 20 mg 02/05/20 09:00 02/05/20 15:53 Escitalopram Oxalate 20 Mg Tablet PO Not Given DAILY [facility] Fluticasone/Vilanterol 1 puff 02/05/20 08:00 02/06/20 07:27 Fluticasone/Vilanterol 100/25 Blst.W.Dev INHALE 1 puff RDAILY PERRY Administration Hydromorphone HCl 0.25 mg 02/04/20 12:43 02/06/20 07:55 Hydromorphone Hcl 0.5 Mg/0.5 Ml Syringe IVPUSH 0.25 mg Q4H PRN Administration Pain, Severe (Pain Scale 7-10) Sodium Chloride 1,000 mls @ 80 mls/hr 02/04/20 12:43 02/06/20 04:36 IVCONT 80 mls/hr .[id number] [facility] Administration Insulin Human Lispro 0 unit 02/04/20 16:30 02/05/20 21:12 Insulin Lispro 100 Unit/Ml 3 Ml Vial SUBCUT 2 unit QIDACHS [facility] Administration Protocol Latanoprost 1 drop 02/04/20 21:00 02/05/20 20:46 Latanoprost 0.005 % Ophth Hali 2.5 Ml Drops EYE-BOTH 1 drop BEDTIME [facility] Administration Lisinopril 20 mg 02/05/20 09:00 02/05/20 15:51 Lisinopril 20 Mg Tablet PO Not Given DAILY [facility] Protocol Mirtazapine 30 mg 02/04/20 21:00 02/05/20 20:46 Mirtazapine 30 Mg Tablet PO 30 mg BEDTIME [facility] Administration Multivitamins/Vitamin C 1 tab 02/05/20 09:00 02/05/20 15:49 Multivitamin Tablet PO Not Given DAILY [facility] Naloxone HCl 0.2 mg 02/04/20 12:43 Naloxone Hcl 0.4 Mg/Ml Vial IVPUSH Q2M PRN Excessive sedation or RR < 8 Ondansetron HCl 4 mg 02/04/20 13:49 Ondansetron Hcl 4 Mg/2 Ml Vial IVPUSH Q6H PRN Nausea Oxycodone HCl 10 mg 02/04/20 12:43 02/06/20 05:22 Oxycodone Hcl Immed Release 5 Mg Tablet PO 10 mg Q4H PRN Administration Pain, Moderate (Pain Scale 4-6 Senna 17.2 mg 02/04/20 12:43 Sennosides 8.6 Mg Tablet PO BEDTIME PRN Constipation Sodium Chloride 3 ml 02/04/20 16:00 02/06/20 00:13 0.9 % Sodium Chloride Flush 3 Ml Syringe IVFLUSH Not Given QSHIFT PERRY Time Spent With Patient Time: Total time spent is greater than 50% in coordination of care (as documented) at patient's floor/unit and/or counseling patient: Time with patient: 15 - 24 minutes
--- NOTE | 2020-02-06 09:00 | HO.PM.IMPN ---
Subjective Subjective Date of Service: 02/07/20 Interval History: seen in f/u for consult s/p TKR, doing well other than pain Review of Systems Gen: no fever Resp: no sob, no cough CV: no chest, no CATES, no leg edema GI: No n/v, no abd pain Neuro: No confusion Musk/skl: pain in the right Physical Exam Vital Signs: Vital Signs: Last Vital Signs Temp 98.9 F 02/06/20 07:00 Pulse 119 H 02/06/20 07:29 Resp 18 02/06/20 07:00 BP 100/82 02/06/20 07:00 Pulse Ox 96 02/06/20 07:00 Body Mass Index 36.7 General: AO X 3, no acute distress Resp: CTA bilateral CVS: S1,S2,RRR GI: +BS, NT, no distention Skin: No rash, woun d/c/i Neuro: motor grossly intact Psych: appropriate affect Objective Data Current Medications Generic Name Dose Route Start Last Admin Trade Name Freq PRN Reason Stop Dose Admin Acetaminophen 650 mg 02/04/20 12:43 Acetaminophen 325 Mg Tablet PO Q6H PRN Pain, Mild (Pain Scale 1-3) Albuterol Sulfate 2 puff 02/04/20 12:43 Albuterol Sulfate 90 Mcg 8 Gm Inhaler INHALE 6XD PRN Wheezing Brimonidine Tartrate 1 drop 02/04/20 21:00 02/05/20 20:47 Brimonidine Tartrate 0.2% Oph 5 Ml Bottle EYE-BOTH 1 drop BID PERRY Administration Celecoxib 200 mg 02/04/20 21:00 02/05/20 20:46 Celecoxib 200 Mg Capsule PO 200 mg BID PERRY Administration Cyclobenzaprine HCl 5 mg 02/04/20 21:00 02/05/20 20:46 Cyclobenzaprine Hcl 5 Mg Tablet PO 5 mg BID PERRY Administration Enoxaparin Sodium 40 mg 02/06/20 11:00 Enoxaparin Sodium 40 Mg/0.4 Ml Syringe SUBCUT Q24H PERRY Escitalopram Oxalate 20 mg 02/05/20 09:00 02/05/20 15:53 Escitalopram Oxalate 20 Mg Tablet PO Not Given DAILY PERRY Fluticasone/Vilanterol 1 puff 02/05/20 08:00 02/06/20 07:27 Fluticasone/Vilanterol 100/25 Blst.W.Dev INHALE 1 puff RDAILY PERRY Administration Hydromorphone HCl 0.25 mg 02/04/20 12:43 02/06/20 07:55 Hydromorphone Hcl 0.5 Mg/0.5 Ml Syringe IVPUSH 0.25 mg Q4H PRN Administration Pain, Severe (Pain Scale 7-10) Sodium Chloride 1,000 mls @ 80 mls/hr 02/04/20 12:43 02/06/20 04:36 IVCONT 80 mls/hr .[id number] PERRY Administration Insulin Human Lispro 0 unit 02/04/20 16:30 02/05/20 21:12 Insulin Lispro 100 Unit/Ml 3 Ml Vial SUBCUT 2 unit QIDACHS [facility] Administration Protocol Latanoprost 1 drop 02/04/20 21:00 02/05/20 20:46 Latanoprost 0.005 % Ophth Hali 2.5 Ml Drops EYE-BOTH 1 drop BEDTIME [facility] Administration Lisinopril 20 mg 02/05/20 09:00 02/05/20 15:51 Lisinopril 20 Mg Tablet PO Not Given DAILY [facility] Protocol Mirtazapine 30 mg 02/04/20 21:00 02/05/20 20:46 Mirtazapine 30 Mg Tablet PO 30 mg BEDTIME [facility] Administration Multivitamins/Vitamin C 1 tab 02/05/20 09:00 02/05/20 15:49 Multivitamin Tablet PO Not Given DAILY [facility] Naloxone HCl 0.2 mg 02/04/20 12:43 Naloxone Hcl 0.4 Mg/Ml Vial IVPUSH Q2M PRN Excessive sedation or RR < 8 Ondansetron HCl 4 mg 02/04/20 13:49 Ondansetron Hcl 4 Mg/2 Ml Vial IVPUSH Q6H PRN Nausea Oxycodone HCl 10 mg 02/04/20 12:43 02/06/20 05:22 Oxycodone Hcl Immed Release 5 Mg Tablet PO 10 mg Q4H PRN Administration Pain, Moderate (Pain Scale 4-6 Senna 17.2 mg 02/04/20 12:43 Sennosides 8.6 Mg Tablet PO BEDTIME PRN Constipation Sodium Chloride 3 ml 02/04/20 16:00 02/06/20 00:13 0.9 % Sodium Chloride Flush 3 Ml Syringe IVFLUSH Not Given QSHIFT PERRY Labs CBC & Chem 7: 02/07/20 05:52 02/07/20 05:52 Assessment and Plan (1) Diabetes insipidus, neurohypophyseal: Status: Acute (2) Post-traumatic osteoarthritis of right knee: Status: Acute (3) Depression: Status: Acute (4) Hypertension: Status: Acute (5) CHASE on CPAP: Status: Acute (6) Anxiety: Status: Acute Assessment and Plan: 69/F with DM, HTN, Depression, CHASE here with right knee OA s/p Right TKR 1. Dabetes--Hold oral agents (Acotos and Glipzide) until tomorrrow. Add SSI, and check sugars 2. HTN -BP on low side in afternoon and given NS bolus 3. Depression--Remron, Celex 4. Anxiety--Xanax PRN 5. COPD, stable no exacerbtion--Albuterol PRN 6. s/p TKR, management by ortho 7. Anemia--H/H stable.
[2020-02-06] MEDS: Brimonidine Tartrate 0.2% Oph 5 ML BOTTLE 1 DROP EYE-BOTH ×2 (09:08→21:42)
[2020-02-06] MEDS: Escitalopram Oxalate 20 MG TABLET PO (09:09)
[2020-02-06] MEDS: Celecoxib 200 MG CAPSULE PO ×2 (09:09→21:51)
[2020-02-06] MEDS: Cyclobenzaprine HCl 5 MG TABLET PO ×2 (09:09→21:51)
[2020-02-06] MEDS: Multivitamin TABLET 1 TAB PO (09:09)
[2020-02-06] MEDS: Insulin Lispro 100 UNIT/ML 3 ML VIAL SUBCUT ×3 (09:10→21:50)
[2020-02-06] MEDS: Enoxaparin Sodium 40 MG/0.4 ML SYRINGE SUBCUT (11:02)
[2020-02-06] MEDS: Acetaminophen 325 MG TABLET 650 MG PO ×2 (11:12→20:30)
[2020-02-06 11:16] LABS: Glucose, Whole Blood 222 mg/dL (60-115)
--- NOTE | 2020-02-06 13:39 | MHC.CM.PN ---
NURSE HOUSING DIRECTOR NOTE ELECTRONIC MEDICAl record reviewed along with case discussed with staff nurse and hospitalist met with patient she is s/p pst op day 1 after revision of the formerly [facility] total knee arthroplasty. (has provena wound vac in place with WBAT) plan for pain manAgement , and physical therapy, STARTED ON ASPIRIN FOR DVT PRECAUTIONS. CASE DISCUSSED WITH PHYSICAL THEARPIST AND NOW RECOMMENDING SHORT TERM REHAB THIS WAS DISCUSSED WITH PATIENT AND INIATED REFERRALS T [facility] DISCHARGE PLAN STR INIATED REFERRAL TO [facility] , [facility] , [facility] HAS [place]NA WOUND VAC IN PLACE , VS HOME WITH REFERRAL T [facility] FOR NURASING AND HOME PHYSICAL THEARPY
--- NOTE | 2020-02-06 14:33 | PC.NURSE ---
1410 BP 82/45 HR 93 pt denies any s/s. Assisted BTB and edmund well. Dr Gonzalez and ortho PA Ino notified. Dr Gonzalez in to see pt. Bolus IVF ordered wound vac patent. Draining sm amt of bloody drainage. Voiding qs. Participating with PT. Dsg on knee intact. Edmund diet.
[2020-02-06] MEDS: 0.9 % Sodium Chloride 1,000 ML 999 ML IVCONT (14:45)
--- NOTE | 2020-02-06 15:25 | HO.POSTANES ---
Post Anesthesia Evaluation Post Anesthesia Evaluation Vital Signs: Vital Signs Temp Pulse Resp BP Pulse Ox 02/06/20 14:56 97 F 89 18 83/47 L 93 02/06/20 14:05 93 82/45 L 02/06/20 11:00 100.9 F H 76 20 116/90 H 92 02/06/20 07:29 119 H 02/06/20 07:00 98.9 F 96 18 100/82 96 Anesthesia: General Mental Status: Awake Pain Control: Satisfactory Nausea/Vomiting: None Hydration: Adequate Anesthesia-Related Issues: No Anes. Related Issues
[2020-02-06] MEDS: 0.9 % Sodium Chloride Flush 3 ML SYRINGE IVFLUSH (15:51)
[2020-02-06 16:28] LABS: Glucose, Whole Blood 145 mg/dL (60-115)
[2020-02-06] MEDS: 0.9 % Sodium Chloride 1,000 ML 999 ML IV (20:27)
[2020-02-06 20:55] LABS: Glucose, Whole Blood 182 mg/dL (60-115)
[2020-02-06] MEDS: Latanoprost 0.005 % Ophth Sol 2.5 ML DROPS 1 DROP EYE-BOTH (21:42)
[2020-02-06] MEDS: Mirtazapine 30 MG TABLET PO (21:51)
--- NOTE | 2020-02-06 23:00 | PC.NURSE ---
Late entry: Pt received with 1000ml bolus NS running due to hypotension (83/47). Pt is asymptomatic with no complaints other than pain in Right knee. Scant drainage noted in tubing from woundvac to R knee. BP improved to 94/56. At 1900, BP in L arm 76/58 auto, 76/? manual, diastolic BP unable to be found. Pt remains asymptomatic. R arm auto BP 156/65, manual BP 140/46. Dr Giorgio Monterroso notified, along with NADIYA Gamino. CXR and 1000ml NS bolus ordered and administered. s/p bolus, manual BP in L arm 86/62, R arm 162/58. Pt remains asymptomatic. Providers updated. No new orders from Dr Avila Monterroso or Dr Melo. Continue to monitor pt.
[2020-02-07] VITALS (15 sets, daily range): BP systolic 98–182; BP diastolic 59–82; PULSE 75–109; RESP 14–18; TEMP 36.1–37.3; O2SAT 96–99
[2020-02-07 06:10] LABS: MANUAL DIFF FLAG NO
[2020-02-07] MEDS: Sodium Chloride 0.45 % 1,000 ML 80 ML IVCONT (06:28)
[2020-02-07 06:47] LABS: Basophils Percent Auto 0.3 % (0-2); Eosinophils Absolute Auto 0.1 X10*3/uL (0.0-0.4); Eosinophils Percent Auto 1.5 % (0-4); Hematocrit 27.6 % (37-47); Hemoglobin 8.3 g/dl (12.0-16.0); Imm Gran Abs Auto 0.03 X10*3/uL (0.00-0.03); Imm Gran Pct Auto 0.5 % (0.0-0.4); Lymphocytes Percent Auto 15.4 % (20-40); Mean Corpuscular HGB Conc 30.1 g/dl (31.0-35.0); Mean Corpuscular Hemoglobin 28.3 pg (27.0-33.0); Mean Corpuscular Volume 94.2 fL (80-98); Mean Platelet Volume 11.3 fL (9.4-12.3); Monocytes Absolute Auto 0.7 X10*3/uL (0.1-1.2); Monocytes Percent Auto 11.1 % (2-11); Neutrophils Absolute Auto 4.7 X10*3/uL (2.0-8.3); Neutrophils Percent Auto 71.2 % (45-73); Red Blood Count 2.93 X10*6/uL (4.20-5.50); Red Cell Distribution Width 14.8 % (11.0-16.0); White Blood Count 6.6 X10*3/uL (4.8-10.8)
[2020-02-07 06:48] LABS: Anion Gap 11 (12-20); Blood Urea Nitrogen 12 mg/dL (9-16); Calcium 8.2 mg/dL (8.4-10.2); Carbon Dioxide 26 mmol/L (22-29); Chloride 107 mmol/L (96-108); Creatinine Clr Calc Pharmacy 77.8; Estimated Glomerular Filt Rate > 60; Glucose Fasting 171 mg/dL (60-99); Potassium 4.2 mmol/l (3.3-5.1); Sodium 140 mmol/L (135-145)
[2020-02-07 07:02] LABS: Platelet Count 88 X10*3/uL (160-400)
[2020-02-07 07:53] LABS: Glucose, Whole Blood 163 mg/dL (60-115)
--- NOTE | 2020-02-07 08:04 | P.PNOP_ITS ---
Subjective Subjective Date of Service: 02/10/20 Interval history: POD 2 s/p Revision RT TKA No overnight events, resting in bed, she has pain but tolerable with medication. She was able to work with PT, using walker to chair. Denies cp, sob, palpitations. Physical Exam Vital Signs: Vital Signs: Last Vital Signs Temp 97.5 F 02/07/20 06:00 Pulse 109 H 02/07/20 06:00 Resp 18 02/07/20 06:00 BP 102/82 02/07/20 06:00 Pulse Ox 99 02/07/20 06:00 Body Mass Index 36.7 Const: General: cooperative, healthy appearing and no acute distress Resp: Effort & Inspection: normal respiratory effort and able to speak in complete sentences Cardio: Rate: regular rate Peripheral pulses: Peripheral pulses 2+ throughout GI: Inspection: Yes normal to inspection Palpation (GI): Soft to palpation Skin: General skin exam: no rashes or lesions noted Extrem: Other: Right knee prevena intact. no erythema, mild swelling calf supple non tender. Diff with dorsi flexion, sensation intact. Progress Note: A&P Assessment and plan (1) Status post revision of total replacement of right knee: Status: Acute Assessment and Plan: Continue pain mgmnt Begin lovenox dvt ppx Resume PT for Revision RT TKA wbat Dispo planning-Pending PT eval, pain mgmnt Fall Risk Details Current Medications: Current Medications Generic Name Dose Route Start Last Admin Trade Name Freq PRN Reason Stop Dose Admin Acetaminophen 650 mg 02/04/20 12:43 02/06/20 20:30 Acetaminophen 325 Mg Tablet PO 650 mg Q6H PRN Administration Pain, Mild (Pain Scale 1-3) Albuterol Sulfate 2 puff 02/04/20 12:43 Albuterol Sulfate 90 Mcg 8 Gm Inhaler INHALE 6XD PRN Wheezing Brimonidine Tartrate 1 drop 02/04/20 21:00 02/06/20 21:42 Brimonidine Tartrate 0.2% Oph 5 Ml Bottle EYE-BOTH 1 drop BID PERRY Administration Celecoxib 200 mg 02/04/20 21:00 02/06/20 21:51 Celecoxib 200 Mg Capsule PO 200 mg BID PERRY Administration Cyclobenzaprine HCl 5 mg 02/04/20 21:00 02/06/20 21:51 Cyclobenzaprine Hcl 5 Mg Tablet PO 5 mg BID PERRY Administration Enoxaparin Sodium 40 mg 02/06/20 11:00 02/06/20 11:02 Enoxaparin Sodium 40 Mg/0.4 Ml Syringe SUBCUT 40 mg Q24H PERRY Administration Escitalopram Oxalate 20 mg 02/05/20 09:00 02/06/20 09:09 Escitalopram Oxalate 20 Mg Tablet PO 20 mg DAILY PERRY Administration Fluticasone/Vilanterol 1 puff 02/05/20 08:00 02/06/20 07:27 Fluticasone/Vilanterol 100/25 Blst.W.Dev INHALE 1 puff RDAILY PERRY Administration Hydromorphone HCl 0.25 mg 02/04/20 12:43 02/06/20 07:55 Hydromorphone Hcl 0.5 Mg/0.5 Ml Syringe IVPUSH 0.25 mg Q4H PRN Administration Pain, Severe (Pain Scale 7-10) Sodium Chloride 1,000 mls @ 80 mls/hr 02/04/20 12:43 02/07/20 06:28 IVCONT 80 mls/hr .[id number] PERRY Administration Insulin Human Lispro 0 unit 02/04/20 16:30 02/06/20 21:50 Insulin Lispro 100 Unit/Ml 3 Ml Vial SUBCUT 2 unit QIDACHS [facility] Administration Protocol Latanoprost 1 drop 02/04/20 21:00 02/06/20 21:42 Latanoprost 0.005 % Ophth Hali 2.5 Ml Drops EYE-BOTH 1 drop BEDTIME PERRY Administration Lisinopril 20 mg 02/05/20 09:00 02/06/20 09:10 Lisinopril 20 Mg Tablet PO Not Given DAILY [facility] Protocol Mirtazapine 30 mg 02/04/20 21:00 02/06/20 21:51 Mirtazapine 30 Mg Tablet PO 30 mg BEDTIME PERRY Administration Multivitamins/Vitamin C 1 tab 02/05/20 09:00 02/06/20 09:09 Multivitamin Tablet PO 1 tab DAILY PERRY Administration Naloxone HCl 0.2 mg 02/04/20 12:43 Naloxone Hcl 0.4 Mg/Ml Vial IVPUSH Q2M PRN Excessive sedation or RR < 8 Ondansetron HCl 4 mg 02/04/20 13:49 Ondansetron Hcl 4 Mg/2 Ml Vial IVPUSH Q6H PRN Nausea Oxycodone HCl 10 mg 02/04/20 12:43 02/06/20 11:03 Oxycodone Hcl Immed Release 5 Mg Tablet PO 10 mg Q4H PRN Administration Pain, Moderate (Pain Scale 4-6 Senna 17.2 mg 02/04/20 12:43 Sennosides 8.6 Mg Tablet PO BEDTIME PRN Constipation Sodium Chloride 3 ml 02/04/20 16:00 02/07/20 00:42 0.9 % Sodium Chloride Flush 3 Ml Syringe IVFLUSH Not Given QSHIFT PERRY Time Spent With Patient Time: Total time spent is greater than 50% in coordination of care (as documented) at patient's floor/unit and/or counseling patient: Time with patient: 15 - 24 minutes
[2020-02-07] MEDS: Insulin Lispro 100 UNIT/ML 3 ML VIAL SUBCUT ×3 (08:09→21:50)
[2020-02-07] MEDS: Fluticasone/Vilanterol 100/25 BLST.W.DEV 1 PUFF INHALE (08:10)
[2020-02-07] MEDS: Celecoxib 200 MG CAPSULE PO ×2 (08:10→21:47)
[2020-02-07] MEDS: Escitalopram Oxalate 20 MG TABLET PO (08:10)
[2020-02-07] MEDS: Multivitamin TABLET 1 TAB PO (08:10)
[2020-02-07] MEDS: Cyclobenzaprine HCl 5 MG TABLET PO ×2 (08:10→21:47)
[2020-02-07] MEDS: Brimonidine Tartrate 0.2% Oph 5 ML BOTTLE 1 DROP EYE-BOTH ×2 (08:30→21:48)
[2020-02-07] MEDS: Enoxaparin Sodium 40 MG/0.4 ML SYRINGE SUBCUT (11:03)
--- NOTE | 2020-02-07 11:10 | HO.PM.IMPN ---
Subjective Subjective Date of Service: 02/07/20 Interval History: seen in f/u for consult s/p TKR, doing well other than pain Review of Systems Gen: no fever Resp: no sob, no cough CV: no chest, no CATES, no leg edema GI: No n/v, no abd pain Neuro: No confusion Musk/skl: pain in the right Physical Exam Vital Signs: Vital Signs: Last Vital Signs Temp 99.2 F 02/07/20 10:00 Pulse 75 02/07/20 10:00 Resp 18 02/07/20 10:00 BP 102/69 02/07/20 10:00 Pulse Ox 97 02/07/20 10:00 Body Mass Index 36.7 General: AO X 3, no acute distress Resp: CTA bilateral CVS: S1,S2,RRR GI: +BS, NT, no distention Skin: No rash, woun d/c/i Neuro: motor grossly intact Psych: appropriate affect Objective Data Current Medications Generic Name Dose Route Start Last Admin Trade Name Freq PRN Reason Stop Dose Admin Acetaminophen 650 mg 02/04/20 12:43 02/06/20 20:30 Acetaminophen 325 Mg Tablet PO 650 mg Q6H PRN Administration Pain, Mild (Pain Scale 1-3) Albuterol Sulfate 2 puff 02/04/20 12:43 Albuterol Sulfate 90 Mcg 8 Gm Inhaler INHALE 6XD PRN Wheezing Brimonidine Tartrate 1 drop 02/04/20 21:00 02/07/20 08:30 Brimonidine Tartrate 0.2% Oph 5 Ml Bottle EYE-BOTH 1 drop BID PERRY Administration Celecoxib 200 mg 02/04/20 21:00 02/07/20 08:10 Celecoxib 200 Mg Capsule PO 200 mg BID PERRY Administration Cyclobenzaprine HCl 5 mg 02/04/20 21:00 02/07/20 08:10 Cyclobenzaprine Hcl 5 Mg Tablet PO 5 mg BID PERRY Administration Enoxaparin Sodium 40 mg 02/06/20 11:00 02/07/20 11:03 Enoxaparin Sodium 40 Mg/0.4 Ml Syringe SUBCUT 40 mg Q24H PERRY Administration Escitalopram Oxalate 20 mg 02/05/20 09:00 02/07/20 08:10 Escitalopram Oxalate 20 Mg Tablet PO 20 mg DAILY PERRY Administration Fluticasone/Vilanterol 1 puff 02/05/20 08:00 02/07/20 08:10 Fluticasone/Vilanterol 100/25 Blst.W.Dev INHALE 1 puff RDAILY PERRY Administration Hydromorphone HCl 0.25 mg 02/04/20 12:43 02/06/20 07:55 Hydromorphone Hcl 0.5 Mg/0.5 Ml Syringe IVPUSH 0.25 mg Q4H PRN Administration Pain, Severe (Pain Scale 7-10) Sodium Chloride 1,000 mls @ 80 mls/hr 02/04/20 12:43 02/07/20 06:28 IVCONT 80 mls/hr .[id number] PERRY Administration Insulin Human Lispro 0 unit 02/04/20 16:30 02/07/20 08:09 Insulin Lispro 100 Unit/Ml 3 Ml Vial SUBCUT 2 unit QIDACHS [facility] Administration Protocol Latanoprost 1 drop 02/04/20 21:00 02/06/20 21:42 Latanoprost 0.005 % Ophth Hali 2.5 Ml Drops EYE-BOTH 1 drop BEDTIME PERRY Administration Lisinopril 20 mg 02/05/20 09:00 02/07/20 08:11 Lisinopril 20 Mg Tablet PO Not Given DAILY [facility] Protocol Mirtazapine 30 mg 02/04/20 21:00 02/06/20 21:51 Mirtazapine 30 Mg Tablet PO 30 mg BEDTIME PERRY Administration Multivitamins/Vitamin C 1 tab 02/05/20 09:00 02/07/20 08:10 Multivitamin Tablet PO 1 tab DAILY PERRY Administration Naloxone HCl 0.2 mg 02/04/20 12:43 Naloxone Hcl 0.4 Mg/Ml Vial IVPUSH Q2M PRN Excessive sedation or RR < 8 Ondansetron HCl 4 mg 02/04/20 13:49 Ondansetron Hcl 4 Mg/2 Ml Vial IVPUSH Q6H PRN Nausea Oxycodone HCl 10 mg 02/04/20 12:43 02/06/20 11:03 Oxycodone Hcl Immed Release 5 Mg Tablet PO 10 mg Q4H PRN Administration Pain, Moderate (Pain Scale 4-6 Senna 17.2 mg 02/04/20 12:43 Sennosides 8.6 Mg Tablet PO BEDTIME PRN Constipation Sodium Chloride 3 ml 02/04/20 16:00 02/07/20 08:10 0.9 % Sodium Chloride Flush 3 Ml Syringe IVFLUSH Not Given QSHIFT PERRY Labs CBC & Chem 7: 02/07/20 05:52 02/07/20 05:52 Assessment and Plan (1) Diabetes insipidus, neurohypophyseal: Status: Acute (2) Post-traumatic osteoarthritis of right knee: Status: Acute (3) Depression: Status: Acute (4) Hypertension: Status: Acute (5) CHASE on CPAP: Status: Acute (6) Anxiety: Status: Acute Assessment and Plan: 69/F with DM, HTN, Depression, CHASE here with right knee OA s/p Right TKR 1. Dabetes--Hold oral agents (Acotos and Glipzide) until tomorrrow. Add SSI, and check sugars 2. HTN -Blood pressure is better, continue meds 3. Depression--Remron, Celex 4. Anxiety--Xanax PRN 5. COPD, stable no exacerbtion--Albuterol PRN 6. s/p TKR, management by ortho 7. Anemia--H/H is slightly lower, but no indication for transfusion at this time
[2020-02-07 12:17] LABS: Glucose, Whole Blood 163 mg/dL (60-115)
--- NOTE | 2020-02-07 14:27 | PC.NURSE ---
1400 Zehra blood transfusion, Labs ordered for 1445 to check H&H prior to 2nd unit. per Dr Melo.
--- NOTE | 2020-02-07 15:07 | P.BOP_ITS ---
Brief Operative Note Date of Service: 02/05/20 Pre-op diagnosis: tung-prosthetic tibia fracture right knee Post-op diagnosis: same Procedure: revision, tibial component right knee Implants: Styker revisiion ttibial stem with 10 mm augments and a 150 mm press fit stem and a A cone with 5 hole 1/3 tubualr locking plate (synthes and 3 locking screws Surgeon: Guzman Melo MD Anesthesia: GETA and regional Methods Study Analyst: Ino Lozoya Estimated blood loss (mL): 100 Tourniquet time (min): 120 IV fluids (mL): 1,400 Pathology: none sent Condition: stable Disposition: PACU
[2020-02-07 15:40] LABS: Hematocrit 28.8 % (37-47); Hemoglobin 9.1 g/dl (12.0-16.0)
[2020-02-07] MEDS: 0.9 % Sodium Chloride Flush 3 ML SYRINGE IVFLUSH (16:00)
--- NOTE | 2020-02-07 16:52 | OP_ITS ---
SURGEON: Guzman Melo MD INDICATIONS: This is a 69-year-old woman, who underwent a total knee arthroplasty, complicated by periprosthetic fracture, which was discovered postoperatively. She was consented to return to the operating room to undergo tibial revision. PREOPERATIVE DIAGNOSIS: Periprosthetic tibia fracture. POSTOPERATIVE DIAGNOSIS: Periprosthetic tibia fracture. PROCEDURE PERFORMED: Revision tibial component, left knee arthroplasty. ESTIMATED BLOOD LOSS: 100 mL. COMPLICATIONS: None known. ANESTHESIA: General and regional. ASSISTANTS: SPECIMENS: FLUIDS: 1400. IMPLANTS: Hillary 3 base plate with a 10 mm tibial augments and a size A tibial cone with 150 mm rossi press-fit stem and a 5-hole 1/3 tubular locking plate with 3 locking screws (Synthes). PROCEDURE IN DETAIL: The patient was brought to the operating room, placed supine on the operative table and prepped and draped in standard sterile fashion. Time-out was called to identify proper site, proper procedure, proper surgeon. IV antibiotics per weight was administered. I began by opening up the prior anterior incision. This was extended proximally to the location of the prior hardware. The screws were stripped, this had been previously documented and therefore, a pineapple bur tip was used to bur through the locking plate and then a trephine was used to remove each of the screws. Once this was done, I irrigated copiously and turned my attention back to the knee. The knee was flexed up and the polyethylene implant was removed without difficulty. I then used a flexible osteotome to slowly circumferentially go around the entirety of the tibial base plate and this was removed. There was some mild bone loss, but no additional fractures were encountered. The fracture line however did extend from the posterior aspect of the tibia around jacinto-medially and so the posteromedial tibial plateau was unstable. This left approximately 75% containment in the metadiaphysis of the tibia. The lateral column and anterior cortex was intact up to the insertion of the MCL. I was able to provisionally placed a cone in this region and it had good fixation. I therefore reamed up to a size 11distally , which was a little tight and as I wanted to bypass the trephinated hole sufficiently, a 150 x 10 press fit stem was used. This did bypass the defect and left me without need for offset. I placed my tibial cutting guide and made a clean tibial cut with the predominant weightbearing portion of the bone being the lateral tibial plateau on the lateral column. The fractured posteromedial piece did not affect this. I used a tenaculum to recreate the entirety of the tibial surface. I trialed with 10 mm augments, I was happy with the extension and flexion and stability of the knee using an 11 mm insert. I irrigated copiously and I placed my tibial cone. Once this was done, I was able to compress the posteromedial fragment and then bent the 1/3 tubular plate around the anteromedial cortex to provisionally hold this. I then cemented in my implant with the augments proximally and press-fit distally. Once the cement was dry, I trialed with an 11 mm insert and I was very happy with the stability and range. Therefore, after copious irrigation, my final implant was placed and my TS post was placed and the knee was reduced. I took the knee through range of motion. She had excellent tracking and it was stable at all both the varus, valgus, and anterior-posterior stress, and had 0 to about 95 degrees of motion. Of note, she had a preoperative flexion contracture of 90 degrees. The tibia was inspected and the medial plateau piece was reduced and stable. I then irrigated copiously, closed with absorbable suture and candace and the patient was placed in a Prevena suction dressing. She was then extubated and brought to the recovery room in stable condition. There were no known complications. Of note, intraoperative radiographs were taken before and after placement of the implant, I was happy with the alignment. MD KIMBERLY Sanchez/MANDY / [id number] TARAS
[2020-02-07 17:20] LABS: Glucose, Whole Blood 154 mg/dL (60-115)
[2020-02-07 21:04] LABS: Glucose, Whole Blood 164 mg/dL (60-115)
[2020-02-07] MEDS: oxyCODONE HCl Immed Release 5 MG TABLET 10 MG PO (21:46)
[2020-02-07] MEDS: Mirtazapine 30 MG TABLET PO (21:46)
[2020-02-07] MEDS: Latanoprost 0.005 % Ophth Sol 2.5 ML DROPS 1 DROP EYE-BOTH (21:49)
[2020-02-08] VITALS (7 sets, daily range): BP systolic 143–178; BP diastolic 66–73; PULSE 82–100; RESP 16–18; TEMP 36–36.8; O2SAT 93–96
[2020-02-08 06:32] LABS: MANUAL DIFF FLAG NO
[2020-02-08 07:11] LABS: Basophils Percent Auto 0.4 % (0-2); Eosinophils Absolute Auto 0.2 X10*3/uL (0.0-0.4); Eosinophils Percent Auto 2.8 % (0-4); Hematocrit 30.6 % (37-47); Hemoglobin 9.7 g/dl (12.0-16.0); Imm Gran Abs Auto 0.03 X10*3/uL (0.00-0.03); Imm Gran Pct Auto 0.6 % (0.0-0.4); Lymphocytes Absolute Auto 1.4 X10*3/uL (1.2-4.9); Lymphocytes Percent Auto 26.6 % (20-40); Mean Corpuscular HGB Conc 31.7 g/dl (31.0-35.0); Mean Corpuscular Hemoglobin 29.7 pg (27.0-33.0); Mean Corpuscular Volume 93.6 fL (80-98); Mean Platelet Volume 11.3 fL (9.4-12.3); Monocytes Absolute Auto 0.5 X10*3/uL (0.1-1.2); Monocytes Percent Auto 9.3 % (2-11); Neutrophils Absolute Auto 3.2 X10*3/uL (2.0-8.3); Neutrophils Percent Auto 60.3 % (45-73); Platelet Count 108 X10*3/uL (160-400); Red Blood Count 3.27 X10*6/uL (4.20-5.50); Red Cell Distribution Width 14.8 % (11.0-16.0); White Blood Count 5.3 X10*3/uL (4.8-10.8)
[2020-02-08 07:16] LABS: Anion Gap 12 (12-20); Blood Urea Nitrogen 16 mg/dL (9-16); Carbon Dioxide 28 mmol/L (22-29); Chloride 106 mmol/L (96-108); Creatinine Clr Calc Pharmacy 78.8; Estimated Glomerular Filt Rate > 60; Glucose Random 144 mg/dL (60-115); Sodium 142 mmol/L (135-145)
[2020-02-08] MEDS: 0.9 % Sodium Chloride Flush 3 ML SYRINGE IVFLUSH (07:42)
[2020-02-08] MEDS: oxyCODONE HCl Immed Release 5 MG TABLET 10 MG PO (07:43)
[2020-02-08] MEDS: Fluticasone/Vilanterol 100/25 BLST.W.DEV 1 PUFF INHALE (08:12)
[2020-02-08 08:15] LABS: Glucose, Whole Blood 162 mg/dL (60-115)
[2020-02-08] MEDS: Escitalopram Oxalate 20 MG TABLET PO (08:53)
[2020-02-08] MEDS: Multivitamin TABLET 1 TAB PO (08:53)
[2020-02-08] MEDS: Insulin Lispro 100 UNIT/ML 3 ML VIAL SUBCUT ×2 (08:53→12:11)
[2020-02-08] MEDS: Celecoxib 200 MG CAPSULE PO (08:54)
[2020-02-08] MEDS: lisinopriL 20 MG TABLET PO (08:54)
[2020-02-08] MEDS: Cyclobenzaprine HCl 5 MG TABLET PO (08:54)
[2020-02-08] MEDS: Brimonidine Tartrate 0.2% Oph 5 ML BOTTLE 1 DROP EYE-BOTH (09:04)
--- NOTE | 2020-02-08 09:22 | HO.PM.IMPN ---
Subjective Subjective Date of Service: 02/08/20 Interval History: seen in f/u for consult s/p TKR, doing well other than pain Review of Systems Gen: no fever Resp: no sob, no cough CV: no chest, no CATES, no leg edema GI: No n/v, no abd pain Neuro: No confusion Musk/skl: pain in the right Physical Exam Vital Signs: Vital Signs: Last Vital Signs Temp 96.8 F 02/08/20 07:44 Pulse 100 02/08/20 09:06 Resp 18 02/08/20 05:22 BP 158/69 H 02/08/20 09:06 Pulse Ox 93 02/08/20 07:44 Body Mass Index 36.7 General: AO X 3, no acute distress Resp: normaml [id number] effor CVS: S1,S2,RRR GI: +BS, NT, no distention Skin: No rash, woun d/c/i Neuro: motor grossly intact Psych: appropriate affect Objective Data Current Medications Generic Name Dose Route Start Last Admin Trade Name Bacilioq PRN Reason Stop Dose Admin Acetaminophen 650 mg 02/04/20 12:43 02/06/20 20:30 Acetaminophen 325 Mg Tablet PO 650 mg Q6H PRN Administration Pain, Mild (Pain Scale 1-3) Albuterol Sulfate 2 puff 02/04/20 12:43 Albuterol Sulfate 90 Mcg 8 Gm Inhaler INHALE 6XD PRN Wheezing Brimonidine Tartrate 1 drop 02/04/20 21:00 02/08/20 09:04 Brimonidine Tartrate 0.2% Oph 5 Ml Bottle EYE-BOTH 1 drop BID PERRY Administration Celecoxib 200 mg 02/04/20 21:00 02/08/20 08:54 Celecoxib 200 Mg Capsule PO 200 mg BID PERRY Administration Cyclobenzaprine HCl 5 mg 02/04/20 21:00 02/08/20 08:54 Cyclobenzaprine Hcl 5 Mg Tablet PO 5 mg BID PERRY Administration Enoxaparin Sodium 40 mg 02/06/20 11:00 02/07/20 11:03 Enoxaparin Sodium 40 Mg/0.4 Ml Syringe SUBCUT 40 mg Q24H PERRY Administration Escitalopram Oxalate 20 mg 02/05/20 09:00 02/08/20 08:53 Escitalopram Oxalate 20 Mg Tablet PO 20 mg DAILY PERRY Administration Fluticasone/Vilanterol 1 puff 02/05/20 08:00 02/08/20 08:12 Fluticasone/Vilanterol 100/25 Blst.W.Dev INHALE 1 puff RDAILY PERRY Administration Hydromorphone HCl 0.25 mg 02/04/20 12:43 02/06/20 07:55 Hydromorphone Hcl 0.5 Mg/0.5 Ml Syringe IVPUSH 0.25 mg Q4H PRN Administration Pain, Severe (Pain Scale 7-10) Insulin Human Lispro 0 unit 02/04/20 16:30 02/08/20 08:53 Insulin Lispro 100 Unit/Ml 3 Ml Vial SUBCUT 2 unit QIDACHS [facility] Administration Protocol Latanoprost 1 drop 02/04/20 21:00 02/07/20 21:49 Latanoprost 0.005 % Ophth Hali 2.5 Ml Drops EYE-BOTH 1 drop BEDTIME PERRY Administration Lisinopril 20 mg 02/05/20 09:00 02/08/20 08:54 Lisinopril 20 Mg Tablet PO 20 mg DAILY [facility] Administration Protocol Mirtazapine 30 mg 02/04/20 21:00 02/07/20 21:46 Mirtazapine 30 Mg Tablet PO 30 mg BEDTIME [facility] Administration Multivitamins/Vitamin C 1 tab 02/05/20 09:00 02/08/20 08:53 Multivitamin Tablet PO 1 tab DAILY PERRY Administration Naloxone HCl 0.2 mg 02/04/20 12:43 Naloxone Hcl 0.4 Mg/Ml Vial IVPUSH Q2M PRN Excessive sedation or RR < 8 Ondansetron HCl 4 mg 02/04/20 13:49 Ondansetron Hcl 4 Mg/2 Ml Vial IVPUSH Q6H PRN Nausea Oxycodone HCl 10 mg 02/04/20 12:43 02/08/20 07:43 Oxycodone Hcl Immed Release 5 Mg Tablet PO 10 mg Q4H PRN Administration Pain, Moderate (Pain Scale 4-6 Senna 17.2 mg 02/04/20 12:43 Sennosides 8.6 Mg Tablet PO BEDTIME PRN Constipation Sodium Chloride 3 ml 02/04/20 16:00 02/08/20 07:42 0.9 % Sodium Chloride Flush 3 Ml Syringe IVFLUSH 3 ml QSHIFT PERRY Administration Labs CBC & Chem 7: 02/08/20 06:14 02/08/20 06:14 Assessment and Plan (1) Diabetes insipidus, neurohypophyseal: Status: Acute (2) Post-traumatic osteoarthritis of right knee: Status: Acute (3) Depression: Status: Acute (4) Hypertension: Status: Acute (5) CHASE on CPAP: Status: Acute (6) Anxiety: Status: Acute Assessment and Plan: 69/F with DM, HTN, Depression, CHASE here with right knee OA s/p Right TKR 1. Dabetes--Hold oral agents (Acotos and Glipzide) -ok to resume home oral meds 2. HTN --continue Lisinopril 3. Depression--Remron, Celexa 4. Anxiety--Xanax PRN 5. COPD, stable no exacerbtion--Albuterol PRN 6. s/p TKR, management by ortho 7. Anemia--H/H is stable, no indication for transfusion at this time From medical standpoint okay to discharge. Get covid now for placement
--- NOTE | 2020-02-08 10:16 | P.PNOP_ITS ---
Subjective Subjective Date of Service: 02/08/20 Interval history: POD 3 s/p Revision RT TKA No overnight events, recv'd 2units PRBCs . feeling well, denies cp, sob, palpitations Physical Exam Vital Signs: Vital Signs: Last Vital Signs Temp 96.8 F 02/08/20 07:44 Pulse 100 02/08/20 09:06 Resp 18 02/08/20 05:22 BP 158/69 H 02/08/20 09:06 Pulse Ox 93 02/08/20 07:44 Body Mass Index 36.7 Const: General: cooperative, healthy appearing and no acute distress Resp: Effort & Inspection: normal respiratory effort and able to speak in complete sentences Cardio: Rate: regular rate Peripheral pulses: Peripheral pulses 2+ throughout GI: Inspection: Yes normal to inspection Palpation (GI): Soft to palpation Skin: General skin exam: no rashes or lesions noted Extrem: Other: Prevena intact, no erythema, mild edema. pulses present, diff with dorsiflexion. sensation intact. Progress Note: A&P Assessment and plan (1) Status post revision of total replacement of right knee: Status: Acute Assessment and Plan: cont pain mgmgnt cont PT RT TKA prevena intact cont dvt ppx dispo planning-pending covid test Fall Risk Details Current Medications: Current Medications Generic Name Dose Route Start Last Admin Trade Name Freq PRN Reason Stop Dose Admin Acetaminophen 650 mg 02/04/20 12:43 02/06/20 20:30 Acetaminophen 325 Mg Tablet PO 650 mg Q6H PRN Administration Pain, Mild (Pain Scale 1-3) Albuterol Sulfate 2 puff 02/04/20 12:43 Albuterol Sulfate 90 Mcg 8 Gm Inhaler INHALE 6XD PRN Wheezing Brimonidine Tartrate 1 drop 02/04/20 21:00 02/08/20 09:04 Brimonidine Tartrate 0.2% Oph 5 Ml Bottle EYE-BOTH 1 drop BID PERRY Administration Celecoxib 200 mg 02/04/20 21:00 02/08/20 08:54 Celecoxib 200 Mg Capsule PO 200 mg BID PERRY Administration Cyclobenzaprine HCl 5 mg 02/04/20 21:00 02/08/20 08:54 Cyclobenzaprine Hcl 5 Mg Tablet PO 5 mg BID PERRY Administration Enoxaparin Sodium 40 mg 02/06/20 11:00 02/07/20 11:03 Enoxaparin Sodium 40 Mg/0.4 Ml Syringe SUBCUT 40 mg Q24H PERRY Administration Escitalopram Oxalate 20 mg 02/05/20 09:00 02/08/20 08:53 Escitalopram Oxalate 20 Mg Tablet PO 20 mg DAILY PERRY Administration Fluticasone/Vilanterol 1 puff 02/05/20 08:00 02/08/20 08:12 Fluticasone/Vilanterol 100/25 Blst.W.Dev INHALE 1 puff RDAILY PERRY Administration Glipizide 5 mg 02/08/20 17:00 Glipizide 5 Mg Tablet PO BIDWM PERRY Hydromorphone HCl 0.25 mg 02/04/20 12:43 02/06/20 07:55 Hydromorphone Hcl 0.5 Mg/0.5 Ml Syringe IVPUSH 0.25 mg Q4H PRN Administration Pain, Severe (Pain Scale 7-10) Insulin Human Lispro 0 unit 02/04/20 16:30 02/08/20 08:53 Insulin Lispro 100 Unit/Ml 3 Ml Vial SUBCUT 2 unit QIDACHS [facility] Administration Protocol Latanoprost 1 drop 02/04/20 21:00 02/07/20 21:49 Latanoprost 0.005 % Ophth Hali 2.5 Ml Drops EYE-BOTH 1 drop BEDTIME PERRY Administration Lisinopril 20 mg 02/05/20 09:00 02/08/20 08:54 Lisinopril 20 Mg Tablet PO 20 mg DAILY [facility] Administration Protocol Mirtazapine 30 mg 02/04/20 21:00 02/07/20 21:46 Mirtazapine 30 Mg Tablet PO 30 mg BEDTIME PERRY Administration Multivitamins/Vitamin C 1 tab 02/05/20 09:00 02/08/20 08:53 Multivitamin Tablet PO 1 tab DAILY [facility] Administration Naloxone HCl 0.2 mg 02/04/20 12:43 Naloxone Hcl 0.4 Mg/Ml Vial IVPUSH Q2M PRN Excessive sedation or RR < 8 Ondansetron HCl 4 mg 02/04/20 13:49 Ondansetron Hcl 4 Mg/2 Ml Vial IVPUSH Q6H PRN Nausea Oxycodone HCl 10 mg 02/04/20 12:43 02/08/20 07:43 Oxycodone Hcl Immed Release 5 Mg Tablet PO 10 mg Q4H PRN Administration Pain, Moderate (Pain Scale 4-6 Senna 17.2 mg 02/04/20 12:43 Sennosides 8.6 Mg Tablet PO BEDTIME PRN Constipation Sodium Chloride 3 ml 02/04/20 16:00 02/08/20 07:42 0.9 % Sodium Chloride Flush 3 Ml Syringe IVFLUSH 3 ml QSHIFT PERRY Administration Time Spent With Patient Time: Total time spent is greater than 50% in coordination of care (as documented) at patient's floor/unit and/or counseling patient: Time with patient: 15 - 24 minutes
--- NOTE | 2020-02-08 10:25 | P.DS_ITS ---
DS: Providers Provider Date of admission: 02/04/20 06:23 Primary care physician: Zhanna Solomon MD Consults: 02/04/20 12:43 Consult to Hospitalist Routine Consulting Provider: Hospitalist Reason for consultation: diabetes, medical management DS: Diagnosis Discharge Diagnosis (1) Status post revision of total replacement of right knee: Status: Acute Problem details: Ms. Bledsoe is a 69 yo female who presented to our office with ongoing right knee pain s/p TAWANNA. She was dx with post traumatic OA of the right knee and continued to have difficulty with ADL's; therefore, she consented to move forward with RT TKA. DS: Medications Discharge Medications Home Medications: Home Medications Medication Instructions Recorded Confirmed alprazolam 0.25 mg tablet 0.25 mg PO DAILY PRN 01/02/20 01/02/20 brimonidine 0.1 % eye drops 1 drp OPHTHALMIC (EYE) BID ml 01/02/20 02/04/20 citalopram 40 mg tablet 40 mg PO DAILY 01/02/20 01/20/20 cyclobenzaprine 5 mg tablet 5 mg PO BID 01/02/20 01/20/20 fluticasone 250 mcg-salmeterol 50 2 inh INHALATION DAILY 01/02/20 01/20/20 mcg/dose blistr powdr for inhalation glipizide 10 mg tablet 10 mg PO BID 01/02/20 01/20/20 latanoprost 0.005 % eye drops 1 drp OPHTHALMIC (EYE) DAILY ml 01/02/20 01/20/20 lisinopril 20 mg tablet 20 mg PO DAILY 01/02/20 01/21/20 mirtazapine 30 mg tablet 30 mg PO BEDTIME 01/02/20 01/20/20 pioglitazone 30 mg tablet 30 mg PO DAILY 01/02/20 01/20/20 rosuvastatin 5 mg tablet 5 mg PO DAILY 01/02/20 01/20/20 Incruse Ellipta 1 inh INHALATION DAILY 01/21/20 01/21/20 albuterol sulfate [ProAir HFA] 2 puff INHALATION 6XD PRN 01/21/20 01/21/20 alendronate 1 tab PO QWEEK 01/21/20 01/21/20 multivitamin 1 tab PO DAILY 01/21/20 01/21/20 Previous Rx's Medication Instructions Recorded acetaminophen 650 mg PO Q6H PRN 30 Days #240 tab 02/08/20 celecoxib 200 mg PO BID 30 Days #60 cap 02/08/20 enoxaparin 40 mg SUBCUT Q24H 30 Days #12 ml 02/08/20 oxycodone 10 mg PO Q4H PRN 7 Days #42 tab 02/08/20 sennosides [Senna Lax] 17.2 mg PO BEDTIME PRN 30 Days #60 02/08/20 tab DS: Summary Hospital Course Hospital Course: Ms. Bledsoe underwent a Right total knee arthoplasty, she was transferred to PACU for recovery and Post op xrays showed a periprosthetic fracture in the tibia. She was then transferred to the floor to recover and was subsequently booked for Revision RT TKA the following day. She then underwent a successful Revision RT TKA, transferred to PACU and then to the floor to recover. She has a Prevena dressing in place for skin approximation and healing. She is WBAT with a walker and was started with PT twice a day. She was also started on lovenox 40mg subq pod 1. During her stay her vitals remained stables, afebrile at 96.8, POD 2 her h/h dropped to 8.3/27.6, she was given 2 unites PRBC's and her h/h on DC is up to 9.7/30.6. Prior to discharge her prevena is intact and the plan is to be transferred to a [facility]. Time Spent with Patient Time attestation: Total time spent providing and/or coordinating discharge services: Physical Exam Vital Signs: Vital Signs: Last Vital Signs Temp 96.8 F 02/08/20 07:44 Pulse 100 02/08/20 09:06 Resp 18 02/08/20 05:22 BP 158/69 H 02/08/20 09:06 Pulse Ox 93 02/08/20 07:44 Body Mass Index 36.7 Const: General: cooperative, healthy appearing and no acute distress Resp: Effort & Inspection: normal respiratory effort and able to speak in complete sentences Cardio: Rate: regular rate Peripheral pulses: Peripheral pulses 2+ througho ut GI: Inspection: Yes normal to inspection Palpation (GI): Soft to palpation Skin: General skin exam: no rashes or lesions noted Extrem: Other: Prevena intact, no drainage, no erythema, calf supple non tender. limitation with dorsiflexion of the right foot. Sensation and pulses are intact. DS: Data Data Completed and Pending Completed studies during hospitalization [Text1]: Pending at discharge 02/04/20 09:50 Surgical [PTH] Routine Labs on day of discharge: 01/21/20 ECG 12 lead EKG Routine 01/21/20 00:00 MRSA Nasal Screen Routine 01/21/20 10:25 Basic Metabolic Panel Routine Complete Blood Count Auto Diff Routine Hemoglobin A1c Routine 01/29/20 13:50 Red Blood Cells Routine Type and Screen Routine 02/04/20 06:17 COVID-19 ID NOW ([place]) Stat 02/04/20 06:19 Albuterol Sulfate (0.083%) [Ventolin (0.083%)] 2.5 mg INHALE ONCE PRN Gabapentin [Neurontin] 600 mg PO PREOP ONE ceFAZolin Sodium/Dextrose,Iso [Ancef] 2 gm in 50 ml IV PREOP 02/04/20 06:19 Glucose, blood poc AM PRE-OP Providone-Iodine Solution 5% nasal swab .Both Nares x2 pre-op Surgical prep, hair removal PREOP 02/04/20 06:25 Glucose, Whole Blood Routine 02/04/20 06:30 Lactated Ringers [Lr] 1,000 ml IVCONT 100 mls/hr 02/04/20 06:35 Scopolamine [Transderm-Scop] 1.5 mg TRANSDERMA PREOP ONE 02/04/20 06:47 Gabapentin [Neurontin] 300 mg .ROUTE .STK-MED ONE ceFAZolin Sodium/Dextrose,Iso [Ancef] 2 gm in 50 ml .ROUTE As directed 02/04/20 07:17 Midazolam HCl/PF [Versed] 2 mg .ROUTE .STK-MED ONE 02/04/20 07:19 Bupivacaine MPF 0.5 % [Sensorcaine MPF 0.5% 30 ML] 30 ml .ROUTE .STK-MED ONE Lidocaine HCl 2 % MPF [Xylocaine 2 % MPF] 5 ml .ROUTE .STK-MED ONE 02/04/20 07:38 Scopolamine [Transderm-Scop] 1.5 mg .ROUTE .STK-MED ONE 02/04/20 07:56 Tranexamic Acid [Cyklokapron] 1,000 mg .ROUTE .STK-MED ONE 02/04/20 08:28 propofoL [Diprivan] 200 mg IVPUSH .STK-MED ONE 02/04/20 08:35 Acetaminophen [Tylenol] 650 mg PO ONCE PRN Ketorolac Tromethamine [Toradol] 15 mg IVPUSH ONCE PRN oxyCODONE HCl Immed Release [Roxicodone] 5 mg PO ONCE PRN 02/04/20 08:36 Vital Signs Q1H Vital Signs Q5MIN 02/04/20 09:29 Tranexamic Acid [Cyklokapron] 1,000 mg .ROUTE .STK-MED ONE 02/04/20 09:47 propofoL [Diprivan] 200 mg IVPUSH .STK-MED ONE 02/04/20 09:50 Surgical [PTH] Routine 02/04/20 Breakfast Diabetic Diet 02/04/20 10:33 Transfer Order Routine 02/04/20 10:50 XR knee RT 2V Stat 02/04/20 11:00 Acetaminophen [Tylenol] 325 mg .ROUTE .STK-MED ONE 02/04/20 11:01 Ketorolac Tromethamine [Toradol] 15 mg .ROUTE .STK-MED ONE oxyCODONE HCl Immed Release [Roxicodone] 5 mg .ROUTE .STK-MED ONE 02/04/20 12:43 Sodium Chloride 0.45 % 1,000 ml IVCONT 80 mls/hr ondansetron HCL [Zofran] 4 mg IVPUSH Q8H PRN 02/04/20 13:05 ondansetron HCL [Zofran] 4 mg IVPUSH Q6H PRN 02/04/20 14:00 ceFAZolin Sodium/Dextrose,Iso [Ancef] 2 gm in 50 ml IV ONCE@1400 02/04/20 16:29 Glucose, Whole Blood Routine 02/04/20 20:09 Glucose, Whole Blood Routine 02/05/20 XR knee RT 2V Routine 02/05/20 06:00 ceFAZolin Sodium/Dextrose,Iso [Ancef] 2 gm in 50 ml IV PREOP 02/05/20 06:09 Basic Metabolic Panel Fasting DAILY@0600 Complete Blood Count Auto Diff DAILY@0600 02/05/20 07:04 ceFAZolin Sodium/Dextrose,Iso [Ancef] 2 gm in 50 ml .ROUTE As directed 02/05/20 07:10 Glucose, Whole Blood Routine 02/05/20 08:06 Rocuronium [place] [Zemuron] 100 mg IV .STK-MED ONE 02/05/20 08:07 Bupivacaine MPF 0.5 % [Sensorcaine MPF 0.5% 30 ML] 30 ml .ROUTE .STK-MED ONE fentaNYL citrate/PF [Sublimaze] 50 mcg .ROUTE .STK-MED ONE propofoL [Diprivan] 200 mg IVPUSH .STK-MED ONE 02/05/20 08:52 HYDROmorphone HCl [Dilaudid] 2 mg .ROUTE .STK-MED ONE 02/05/20 08:53 Tranexamic Acid [Cyklokapron] 1,000 mg .ROUTE .STK-MED ONE 02/05/20 08:56 Ketamine HCl/NS 50 mg IVPUSH .STK-MED ONE 02/05/20 09:09 Acetaminophen [Ofirmev] 1,000 mg in 100 ml IV As directed 02/05/20 09:54 Vital Signs Q1H HYDROmorphone HCl [Dilaudid] 0.5 mg IVPUSH Q5M PRN Promethazine HCL [Phenergan] 12.5 mg 0.9 % Sodium Chloride [Ns] 50 ml IV ONCE ondansetron HCL [Zofran] 4 mg IVPUSH ONCE PRN 02/05/20 10:19 XR knee RT 2V Stat 02/05/20 11:30 Tranexamic Acid [Cyklokapron] 1,000 mg .ROUTE .STK-MED ONE 02/05/20 11:31 XR knee RT 2V Stat 02/05/20 11:38 Bupivacaine MPF 0.75 % w/EPI [Sensorcaine MPF 0.75%/EPI 1:200,000] 30 ml .ROUTE .STK-MED ONE 02/05/20 12:10 Transfer Order Routine 02/05/20 12:19 Glucose, Whole Blood Routine 02/05/20 12:31 HYDROmorphone HCl [Dilaudid] 0.5 mg .ROUTE .STK-MED ONE Promethazine HCL [Phenergan] 25 mg IV .STK-MED ONE 02/05/20 15:40 ceFAZolin Sodium/Dextrose,Iso [Ancef] 2 gm in 50 ml IV POSTOP 02/05/20 16:58 Glucose, Whole Blood Routine 02/05/20 20:43 Glucose, Whole Blood Routine 02/06/20 XR chest 1V Stat 02/06/20 06:05 Basic Metabolic Panel Fasting DAILY@0600 Complete Blood Count Auto Diff DAILY@0600 02/06/20 08:05 Glucose, Whole Blood Routine 02/06/20 11:11 Glucose, Whole Blood Routine 02/06/20 14:30 0.9 % Sodium Chloride [Ns] 1,000 ml IVCONT 999 mls/hr 02/06/20 16:24 Glucose, Whole Blood Routine 02/06/20 19:30 0.9 % Sodium Chloride [Ns] 1,000 ml IV 999 mls/hr 02/06/20 20:49 Glucose, Whole Blood Routine 02/07/20 05:52 Basic Metabolic Panel Fasting DAILY@0600 Complete Blood Count Auto Diff DAILY@0600 02/07/20 07:48 Glucose, Whole Blood Routine 02/07/20 12:07 Glucose, Whole Blood Routine 02/07/20 15:28 Hemoglobin and Hematocrit DIRECTED 02/07/20 16:38 Glucose, Whole Blood Routine 02/07/20 21:00 Glucose, Whole Blood Routine 02/08/20 06:14 Type and Screen DAILY Basic Metabolic Panel DAILY@0600 Complete Blood Count Auto Diff DAILY@0600 02/08/20 07:49 Glucose, Whole Blood Routine Laboratory Last Values WBC 5.3 X10*3/uL (4.8-10.8) 02/08/20 06:14 WBC Cancelled 02/08/20 06:14 RBC 3.27 X10*6/uL (4.20-5.50) L 02/08/20 06:14 RBC Cancelled 02/08/20 06:14 Hgb 9.7 g/dl (12.0-16.0) L 02/08/20 06:14 Hgb Cancelled 02/08/20 06:14 Hct 30.6 % (37-47) L 02/08/20 06:14 Hct Cancelled 02/08/20 06:14 MCV 93.6 fL (80-98) 02/08/20 06:14 MCV Cancelled 02/08/20 06:14 MCH 29.7 pg (27.0-33.0) 02/08/20 06:14 MCH Cancelled 02/08/20 06:14 MCHC 31.7 g/dl (31.0-35.0) 02/08/20 06:14 MCHC Cancelled 02/08/20 06:14 RDW 14.8 % (11.0-16.0) 02/08/20 06:14 RDW Cancelled 02/08/20 06:14 Plt Count 108 X10*3/uL (160-400) L 02/08/20 06:14 Plt Count Cancelled 02/08/20 06:14 MPV 11.3 fL (9.4-12.3) 02/08/20 06:14 MPV Cancelled 02/08/20 06:14 Immature Gran % (Auto) 0.6 % (0.0-0.4) H 02/08/20 06:14 Neut % (Auto) 60.3 % (45-73) 02/08/20 06:14 Lymph % (Auto) 26.6 % (20-40) 02/08/20 06:14 Clarke % (Auto) 9.3 % (2-11) 02/08/20 06:14 Eos % (Auto) 2.8 % (0-4) 02/08/20 06:14 Baso % (Auto) 0.4 % (0-2) 02/08/20 06:14 Lymph # (Auto) 1.4 X10*3/uL (1.2-4.9) 02/08/20 06:14 Clarke # (Auto) 0.5 X10*3/uL (0.1-1.2) 02/08/20 06:14 Eos # (Auto) 0.2 X10*3/uL (0.0-0.4) 02/08/20 06:14 Baso # (Auto) 0.0 X10*3/uL (0.0-0.2) 02/08/20 06:14 Abs Immat Gran (auto) 0.03 X10*3/uL (0.00-0.03) 02/08/20 06:14 Absolute Neuts (auto) 3.2 X10*3/uL (2.0-8.3) 02/08/20 06:14 Absolute Nucleated RBC 0.000 X10*3/uL (0.0-0.012) 02/08/20 06:14 Absolute Nucleated RBC Cancelled 02/08/20 06:14 Nucleated RBC % (auto) 0.0 /100WBC (0.0-0.2) 02/08/20 06:14 Nucleated RBC % (auto) Cancelled 02/08/20 06:14 Sodium 142 mmol/L (135-145) 02/08/20 06:14 Sodium Cancelled 02/08/20 06:14 Potassium 4.0 mmol/l (3.3-5.1) 02/08/20 06:14 Potassium Cancelled 02/08/20 06:14 Chloride 106 mmol/L (96-108) 02/08/20 06:14 Chloride Cancelled 02/08/20 06:14 Carbon Dioxide 28 mmol/L (22-29) 02/08/20 06:14 Carbon Dioxide Cancelled 02/08/20 06:14 Anion Gap 12 (-20) 02/08/20 06:14 Anion Gap Cancelled 02/08/20 06:14 BUN 16 mg/dL (9-16) 02/08/20 06:14 BUN Cancelled 02/08/20 06:14 Creatinine 0.74 mg/dL (0.5-1.4) 02/08/20 06:14 Creatinine Cancelled 02/08/20 06:14 Estim Creat Clear Calc 78.8 02/08/20 06:14 Estim Creat Clear Calc Cancelled 02/08/20 06:14 Estimated GFR > 60 02/08/20 06:14 Estimated GFR Cancelled 02/08/20 06:14 POC Glucose 162 mg/dL (60-115) H 02/08/20 07:49 Random Glucose 144 mg/dL (60-115) H 02/08/20 06:14 Fasting Glucose Cancelled 02/08/20 06:14 Estimat Average Glucose 157 mg/dL 01/21/20 10:25 Hemoglobin A1c % 7.1 % 01/21/20 10:25 Calcium 8.0 mg/dL (8.4-10.2) L 02/08/20 06:14 Calcium Cancelled 02/08/20 06:14 Nasal Screen MRSA (PCR) NEGATIVE (Negative) 01/21/20 00:00 Nasal S. aureus Screen POSITIVE (Negative) A 01/21/20 00:00 Nasal MRSA/S.aureus Interp SEE NOTE 01/21/20 00:00 COVID-19 (JARED) Negative (Negative) 02/04/20 06:17 COVID-19 Clin Com See Note 02/04/20 06:17 Blood Type A Positive 02/08/20 06:14 Antibody Screen NEGATIVE 02/08/20 06:14 Crossmatch See Detail 01/29/20 13:50 Discharge Plan Discharge Patient Disposition: er [facility] Referrals: Zhanna Solomon MD [Primary Care Provider] - Discharge Medications: New celecoxib 200 mg Capsule 200 mg PO BID 30 Days Qty: 60 RF: 0 acetaminophen 325 mg Tablet 650 mg PO Q6H PRN (Reason: Pain, Mild (Pain Scale 1-3)) 30 Days Qty: 240 RF: 0 enoxaparin 40 mg/0.4 mL Syringe 40 mg subcut Q24H 30 Days Qty: 12 RF: 0 oxycodone 10 mg tablet 10 mg PO Q4H PRN (Reason: Pain, Moderate (Pain Scale 4-6) 7 Days Qty: 42 RF: 0 sennosides [Senna Lax] 8.6 mg Tablet 17.2 mg PO BEDTIME PRN (Reason: Constipation) 30 Days Qty: 60 RF: 0 Continued alendronate 70 mg tablet 1 tab PO QWEEK RF: 0 multivitamin Tablet 1 tab PO DAILY RF: 0 albuterol sulfate [ProAir HFA] 90 mcg/actuation Hfa Aerosol Inhaler 2 puff INHALATION 6XD PRN (Reason: Wheezing) RF: 0 Incruse Ellipta 62.5 mcg/actuation Blister With Device 1 inh INHALATION DAILY RF: 0 rosuvastatin 5 mg tablet 5 mg PO DAILY RF: 0 pioglitazone 30 mg tablet 30 mg PO DAILY RF: 0 cyclobenzaprine 5 mg tablet 5 mg PO BID RF: 0 glipizide 10 mg tablet 10 mg PO BID RF: 0 alprazolam 0.25 mg tablet 0.25 mg PO DAILY PRN (Reason: anxiety) RF: 0 mirtazapine 30 mg tablet 30 mg PO BEDTIME RF: 0 latanoprost 0.005 % drops 1 drp ophthalmic (eye) DAILY RF: 0 citalopram 40 mg tablet 40 mg PO DAILY RF: 0 lisinopril 20 mg tablet 20 mg PO DAILY RF: 0 fluticasone propion-salmeterol 250-50 mcg/dose blister with device 2 inh inhalation DAILY RF: 0 brimonidine 0.1 % drops 1 drp ophthalmic (eye) BID RF: 0 Discontinued aspirin 81 mg Tablet 81 mg PO DAILY RF: 0 acetaminophen 500 mg tablet 500 mg PO Q6H RF: 0 meloxicam 15 mg tablet 15 mg PO DAILY RF: 0 (DME) oxygen-air delivery systems Device See Rx Instructions .ROUTE .MEDSUPPLY Qty: 1 RF: 0 Discharge Orders: Discharge Order (Routine); Ordered 02/08/20 Ordered By: Ino Lozoya Diet: regular diet Activity on Discharge: Use cane or walker Visit Report Forms: Patient Portal Discharge page Care Plan Goals: * Physical Therapy for ROM 0-120, quad strength, gait training . Use walker for ambulation * Limit stair climbing, No shower, No tub bath, No driving * Continue lovenox for 2 weeks * Keep prevena dressing clean, dry and intact. If any concerns please call orthopedic office at [phone] * Follow up with orthopedics in 2 weeks Health Concerns: none Plan of Treatment: Physical Therapy Pain management DVT prophylaxis
[2020-02-08] MEDS: Enoxaparin Sodium 40 MG/0.4 ML SYRINGE SUBCUT (10:42)
[2020-02-08 11:20] LABS: COVID-19 Test Negative (Negative); IDNOW Serial# 9DD0AD1C
--- NOTE | 2020-02-08 11:54 | MHC.CM.PN ---
PATIENT IS DISCHARGED TO [facility] FOR 14:00 [facility]IA [facility]. RN, UNIT, AND DAUGHTER RADHA ([phone]) AWARE. IMM 02/06 IN CHART. PATIENT VERBALIZES COMPREHENSION OF HER MEDICARE RIGHTS
[2020-02-08 11:57] LABS: Glucose, Whole Blood 208 mg/dL (60-115)
== END 2020-02-08 14:22 | disposition skilled nursing facility (03) | DRG 467 ==
LOC: HO.SSSA 06:24 → HO.S3 10:51
PROVIDERS: Internal Medicine; Physician Assistant; Admitting Provider Orthopaedic Surgery; PCP Internal Medicine; Visit Provider Orthopaedic Surgery
PROC: 0SRC0JA Replacement of Right Knee Joint with Synthetic Substitute, Uncemented, Open Approach (ICD-10-PCS; CPT 27447; principal; 2020-02-04 07:30)
PROC: 0SPC09Z Removal of Liner from Right Knee Joint, Open Approach (ICD-10-PCS; CPT 27487; principal; 2020-02-05 08:20)
DX: M17.31 Unilateral post-traumatic osteoarthritis, right knee (principal); S82.201A Unspecified fracture of shaft of right tibia, initial encounter for closed fracture; M97.11XA Periprosthetic fracture around internal prosthetic right knee joint, initial encounter; F41.9 Anxiety disorder, unspecified; F32.9 Major depressive disorder, single episode, unspecified; X58.XXXA Exposure to other specified factors, initial encounter; Y93.9 Activity, unspecified; Y92.9 Unspecified place or not applicable; Y99.9 Unspecified external cause status; Z20.828 Contact with and (suspected) exposure to other viral communicable diseases; Z79.51 Long term (current) use of inhaled steroids; Z79.899 Other long term (current) drug therapy
CPT/HCPCS: 36415; 71045; 73560; 80048; 82947; 83036; 85014; 85018; 85025; 85027; 86850; 86900; 86901; 86920; 86923; 87635; 87640; 87641; 88305; 88311; 93005; 94640; 97110; 97116; 97162; 97530; C1713; C1776; J0131; J0690; J1170; J1650; J1885; J2250; J2405; J3010; P9016

== ENCOUNTER 2020-02-13 09:31 | Outpatient (REF) | payer OTHER, MEDICARE, SELFPAY ==
--- NOTE | 2020-02-13 09:42 | XR_ITS ---
EXAMINATION: XR KNEE, RIGHT CLINICAL INFORMATION: Pain COMPARISON: 02/05/2020 TECHNIQUE: AP and lateral views of the right knee. FINDINGS: Postoperative soft tissue swelling and soft tissue gas of the knee with anterior skin candace in place. Soft tissue swelling around the knee has increased compared to 02/05/2020. There appears to be a small amount of fluid in the suprapatellar bursa of the knee joint. Intact appearance of the constrained femoral and tibial components of the total knee arthroplasty. There is some old, residual fixation hardware of the proximal tibia, and ghost tracks from removed hardware of the tibia and distal femur. Again noted is a mildly displaced oblique fracture in posterior cortex of the proximal tibial metadiaphysis. Old, healed fracture of the distal femur. A wound VAC overlies the knee. Atherosclerotic calcification of peripheral vessels. XR/XR knee RT 2V IMPRESSION: * Intact appearance of the constrained femoral and tibial components of the knee arthroplasty. * Soft tissue swelling of the postoperative knee has worsened compared to 02/05/2020. * Again noted is a mildly displaced fracture involving posterior cortex of the proximal tibial metadiaphysis.
== END 2020-02-13 09:32 | disposition home or self-care (01) ==
LOC: HO.HOSX 09:31
PROVIDERS: PCP Internal Medicine; Visit Provider Physician Assistant
DX: M25.561 Pain in right knee (principal); Z96.651 Presence of right artificial knee joint
CPT/HCPCS: 73560; 99212

== ENCOUNTER → 2020-02-21 11:37 | Outpatient (BNVA) | payer MEDICARE, SELFPAY | PROVIDERS: Visit Provider Orthopaedic Surgery | DX: Z47.1 Aftercare following joint replacement surgery (principal); Z96.651 Presence of right artificial knee joint | CPT/HCPCS: 99212 ==

== ENCOUNTER → 2020-03-05 09:16 | Outpatient (BNVA) | payer MEDICARE, SELFPAY | PROVIDERS: Visit Provider Orthopaedic Surgery | DX: Z47.1 Aftercare following joint replacement surgery (principal); Z96.651 Presence of right artificial knee joint | CPT/HCPCS: 99212 ==

== ENCOUNTER 2020-04-16 07:51 | Outpatient (REF) | payer MEDICARE, SELFPAY ==
--- NOTE | ~2020-04-16 | XR_ITS ---
EXAMINATION: XR STANDING AP KNEES XR KNEE, RIGHT CLINICAL INFORMATION: Status post arthroplasty. Follow-up. COMPARISON: Standing AP knees and right knee 02/13/2020, right knee 02/05/2020. TECHNIQUE: Standing AP knees is performed along with lateral and axial patella views of the right knee. FINDINGS: Right knee has hinged prosthesis with long tibial stem traversing stable proximal tibial shaft fracture. Hardware is intact. No interval fracture or destructive process or osteolysis. Old screw tracks again seen distal femoral shaft. Anterior soft tissue swelling is decreased from prior study. No gas tracking in soft tissues. Left knee shows no fracture or dislocation or arthropathy. There are bilateral vascular calcifications again seen, possibly M?nckeberg medial calcific sclerosis as well as atherosclerotic calcification.? XR/XR knee RT 2V IMPRESSION: 1. Right knee hardware intact. No osteolysis. 2. Proximal tibial fracture unchanged in alignment. 3. Right anterior soft tissue swelling decreased from prior exam 02/13/2020. 4. Left knee unremarkable.
--- NOTE | ~2020-04-16 | XR_ITS ---
EXAMINATION: XR STANDING AP KNEES XR KNEE, RIGHT CLINICAL INFORMATION: Status post arthroplasty. Follow-up. COMPARISON: Standing AP knees and right knee 02/13/2020, right knee 02/05/2020. TECHNIQUE: Standing AP knees is performed along with lateral and axial patella views of the right knee. FINDINGS: Right knee has hinged prosthesis with long tibial stem traversing stable proximal tibial shaft fracture. Hardware is intact. No interval fracture or destructive process or osteolysis. Old screw tracks again seen distal femoral shaft. Anterior soft tissue swelling is decreased from prior study. No gas tracking in soft tissues. Left knee shows no fracture or dislocation or arthropathy. There are bilateral vascular calcifications again seen, possibly M?nckeberg medial calcific sclerosis as well as atherosclerotic calcification.? XR/XR knee standing BI IMPRESSION: 1. Right knee hardware intact. No osteolysis. 2. Proximal tibial fracture unchanged in alignment. 3. Right anterior soft tissue swelling decreased from prior exam 02/13/2020. 4. Left knee unremarkable.
== END 2020-04-16 07:52 | disposition home or self-care (01) ==
LOC: HO.HOSX 07:51
PROVIDERS: Visit Provider Orthopaedic Surgery
DX: Z47.89 Encounter for other orthopedic aftercare (principal); Z96.651 Presence of right artificial knee joint
CPT/HCPCS: 73560; 73565; 99212

== ENCOUNTER 2020-10-22 08:17 | Outpatient (REF) | payer MEDICARE, OTHER, SELFPAY ==
--- NOTE | ~2020-10-22 | XR_ITS ---
EXAMINATION: AP VIEWS OF BOTH KNEES AND LATERAL OF SUNRISE VIEW OF THE RIGHT KNEE CLINICAL INFORMATION: Pain COMPARISON: None TECHNIQUE: As above FINDINGS: Extensive Monckeberg calcifications suggesting diabetes. There is evidence of previous arthroplasty right knee. Hardware appears satisfactory. Healed old appearing deformities about the distal visualized femur and proximal tibia and fibula. No acute deformity. There is no evidence for any hardware failure. There is nonspecific infiltration of Hoffa's fat pad noted. Ghost tracks from previous ORIF noted. XR/XR knee RT 2V IMPRESSION: Chronic findings as above. No evidence of any hardware failure.
--- NOTE | ~2020-10-22 | XR_ITS ---
EXAMINATION: AP VIEWS OF BOTH KNEES AND LATERAL OF SUNRISE VIEW OF THE RIGHT KNEE CLINICAL INFORMATION: Pain COMPARISON: None TECHNIQUE: As above FINDINGS: Extensive Monckeberg calcifications suggesting diabetes. There is evidence of previous arthroplasty right knee. Hardware appears satisfactory. Healed old appearing deformities about the distal visualized femur and proximal tibia and fibula. No acute deformity. There is no evidence for any hardware failure. There is nonspecific infiltration of Hoffa's fat pad noted. Ghost tracks from previous ORIF noted. XR/XR knee standing BI IMPRESSION: Chronic findings as above. No evidence of any hardware failure.
== END 2020-10-22 08:18 | disposition home or self-care (01) ==
LOC: HO.HOSX 08:17
PROVIDERS: Visit Provider Orthopaedic Surgery
DX: M25.561 Pain in right knee (principal); Z96.651 Presence of right artificial knee joint
CPT/HCPCS: 73560; 73565; 99212

== ENCOUNTER 2021-04-12 08:43 | Outpatient (REF) | payer MEDICARE, OTHER, SELFPAY ==
--- NOTE | ~2021-04-12 | XR_ITS ---
EXAMINATION: XR AP UPRIGHT BOTH KNEES XR LATERAL AND PATELLAR VIEW RIGHT KNEE CLINICAL INFORMATION: Pain in the knee. COMPARISON: Prior x-rays of the knee October 2020 TECHNIQUE: AP upright of both knees. Lateral and patella views of right knee FINDINGS: Right Knee: Right total knee arthroplasty noted with components in usual and unchanged position. Stable deformity of the proximal tibia and distal femur compatible with old fractures. No periprosthetic fracture or new suspicious area of lucency. Arterial calcification present. No effusion. Limited Left Knee: Medial and lateral compartments are normal. Arterial calcification noted. XR/XR knee RT 2V IMPRESSION: Right: Stable appearance of a right total knee arthroplasty with stable posttraumatic changes in the distal femur and proximal tibia seen previously. Prominent arterial calcification noted. Left: Unremarkable except for arterial calcification.
--- NOTE | ~2021-04-12 | XR_ITS ---
EXAMINATION: XR AP UPRIGHT BOTH KNEES XR LATERAL AND PATELLAR VIEW RIGHT KNEE CLINICAL INFORMATION: Pain in the knee. COMPARISON: Prior x-rays of the knee October 2020 TECHNIQUE: AP upright of both knees. Lateral and patella views of right knee FINDINGS: Right Knee: Right total knee arthroplasty noted with components in usual and unchanged position. Stable deformity of the proximal tibia and distal femur compatible with old fractures. No periprosthetic fracture or new suspicious area of lucency. Arterial calcification present. No effusion. Limited Left Knee: Medial and lateral compartments are normal. Arterial calcification noted. XR/XR knee standing BI IMPRESSION: Right: Stable appearance of a right total knee arthroplasty with stable posttraumatic changes in the distal femur and proximal tibia seen previously. Prominent arterial calcification noted. Left: Unremarkable except for arterial calcification.
== END 2021-04-12 08:44 | disposition home or self-care (01) ==
LOC: HO.HOSX 08:43
PROVIDERS: Visit Provider Orthopaedic Surgery
DX: Z96.651 Presence of right artificial knee joint (principal)
CPT/HCPCS: 73560; 73565; 99212

== ENCOUNTER 2023-10-09 15:22 | Outpatient (AMB) | payer MEDICARE, OTHER, SELFPAY ==
--- NOTE | 2023-10-09 15:59 | AM.OFFWIN_ITS ---
Intake Vital Signs 10/09/23 16:02 Height 5 ft 1 in Weight 169 lb BMI 31.9 BP 128/80 Blood Pressure Location Rt brachial Position Sitting Pulse 89 Pulse Source Pulse Oximeter Temp 98.5 F Temp Source Oral Pulse Oximetry (%) 98 Oxygen Delivery Method Room Air Intake Visit Reasons: [employer] Sinus Infection Intake Note: pt c/o sinus pressure and pain. Started a week agoe Patient Tobacco Use Status: Former Tobacco user Allergies hydrocodone [From VICODIN] Adverse Reaction (Severe, Verified 10/09/23 15:59) NAUSEA AND VOMIITING Do you need a note to return to daycare/school/sports/work: No HPI [employer] Sinus Infection HPI Details This note is constructed using voice recognition software. While every effort has been made to ensure accuracy, manager skilled errors may have been included. The patient is a 73 year old female who presents to the clinic today with concern for sinus infection. She is a former smoker, quitting 7 years ago. She reports frontal sinus congestion and, no fever, no chills no cough no shortness a breath. She notes that when she leans forward she feels a slight amount of dizziness which is typical for when she does have sinus infections. She has had several in the past. [facility] Medical History Anxiety Arrhythmia Arthritis COPD (chronic obstructive pulmonary disease) Depression Diabetes insipidus, neurohypophyseal History of diverticulosis History of renal stone Hypertension IBS (irritable bowel syndrome) CHASE on CPAP Peroneal nerve palsy PONV (postoperative nausea and vomiting) Post-traumatic osteoarthritis of right knee Surgical History History of cystoscopy History of removal of retained hardware Hx of colonoscopy Hx of right knee surgery Status post laser lithotripsy of ureteral calculus Social History Are you a primary healthcare management consultant to a significant other at home: No Do you presently have visiting nurse or other home services: No Alcohol intake: never Comment: pt sleeping Patient Tobacco Use Status: Former Tobacco user Current occupational status: retired Current occupation: Right Handed Review of Systems Const All systems reviewed & are unremarkable except as noted in HPI and below Physical Exam Vital Signs: Last Vital Signs Temp 98.5 F 10/09/23 16:02 Pulse 89 10/09/23 16:02 BP 128/80 10/09/23 16:02 Pulse Ox 98 10/09/23 16:02 Oxygen Delivery Method Room Air 10/09/23 16:02 BMI result Body Mass Index 31.9 Const General: cooperative, healthy appearing, comfortable, no acute distress and alert Orientation/consciousness: patient oriented x3 Limitations: no limitations HEENT Head: Yes normal to inspection and Yes normocephalic Ears: hearing grossly normal bilaterally General nose exam: Normal external nose present Face and sinus: Yes normal facial exam and Yes sinus tenderness (Bilateral frontal, left more than right) Mouth: Normal oral and palatal mucosa present and tongue normal Teeth and gingiva: dentition normal Throat: Yes posterior oropharynx normal Eyes General: appearance normal, both eyes and all related structures Neck Neck: Yes normal visual inspection, Yes full ROM and Yes no lymphadenopathy Resp Effort & Inspection: normal respiratory effort and able to speak in complete sentences Auscultation: clear to auscultation bilaterally Cardio Jugular venous distension: no JVD Palpation: normal PMI Rate: regular rate Heart sounds: S1 normal heart sound present, S2 normal heart sound present, no click, no gallops, no murmurs and no rubs Skin General skin exam: no rashes or lesions noted, elasticity normal and turgor normal Neuro General: patient oriented x3 Psych Appearance: grossly normal Mental Status: mental status grossly normal Speech and movement: Normal speech and movement present Affect: normal affect Assessment & Plan Assessment & Plan (1) Sinusitis: Code(s): J32.9 - Chronic sinusitis, unspecified Qualifiers: Sinusitis location: frontal Chronicity: acute Recurrence: non- recurrent Qualified Code(s): J01.10 - Acute frontal sinusitis, unspecified Plan: History and physical examination consistent with likely ABRS. Supportive measures encouraged and reviewed including hydration, humidification, and sinus rinse versus steam. Antimicrobial therapy sent to requested pharmacy. Advised patient to monitor for worsening or failure to resolve. Given that the patient had some mild dizziness symptoms, advised patient to monitor for complete resolution of the symptoms as these not going away may warrant additional workup including emergency room. Reviewed signs and symptoms consistent with CVA including difficulty speaking, but drank abnormalities, confusion, balance issues, none of which are present on examination today, but if present warrant emergency room treatment. Plan See above for full details and plan. Medications: New amoxicillin-pot clavulanate 875-125 mg 1 tab PO BID 7 days 14 tabs 0RF Coding Level of Care Code Est Pt Level 3 (29972) Diagnoses Acute non-recurrent frontal sinusitis J01.10 Sinusitis location: frontal Chronicity: acute Recurrence: non-recurrent
[2023-10-09 16:02] VITALS: BP 128/80; PULSE 89; TEMP 36.9; O2SAT 98; BMI 31.9
== END 2023-10-09 16:44 | disposition home or self-care (01) ==
PROVIDERS: PCP Nurse Practitioner Gerontology; Visit Provider Registered Nurse
DX: J01.10 Acute frontal sinusitis, unspecified (principal)
CPT/HCPCS: 99213